=== PATIENT | female | born 1935 | race Caucasian/White ===

== ENCOUNTER 2018-04-15 18:58 | Inpatient (IN) | payer MEDICARE, OTHER, MEDICAID ==
[2018-04-15] MEDS ORDERED: Ondansetron PF 4 MG/2 ML Vial ONE (20:30)
[2018-04-15 21:26] LABS: Anion Gap 18 mmol/L (10-20); BUN (Urea Nitrogen) 112 mg/dL (9.8-20.1); Calc. Creatinine Clearance 0 mL/min (70-130); Calcium 10.8 mg/dL (7.8-10.44); Carbon Dioxide 20 mmol/L (23-31); Chloride 109 mmol/L (98-107); Estimated GFR-MDRD 12; Glucose 113 mg/dL (83-110); Potassium 6.1 mmol/L (3.5-5.1); Sodium 141 mmol/L (136-145)
[2018-04-15] MEDS: Sodium Bicarbonate 150 MEQ in Dextrose 5% in Water 1,000 ML IV SCH (23:00)
[2018-04-16 00:59] LABS: Lactic Acid 2.4 mmol/L (0.5-2.2)
--- NOTE | 2018-04-16 01:10 | CON ---
DATE OF CONSULTATION: CONSULTING PHYSICIAN: Linh Avila MD REQUESTING PHYSICIAN: ER physician. REASON FOR CONSULTATION: Acute kidney injury as well as hyperkalemia. IMPRESSION: 1. Acute kidney injury. This is likely prerenal. 2. Hyperkalemia, related to acute kidney injury, possibly compounded by the use of lisinopril and cellular shift of potassium due to metabolic acidosis. PLAN: 1. Start the patient on a bicarb-based infusion to correct the metabolic acidosis or by so doing achieve the potassium into the cells. 2. Renally dose all medications for low GFR. 3. Avoid potentially nephrotoxic agents. 4. Further management will be dependent on the clinical course. Hopefully, the patient's potassium will respond to the above-mentioned medical management. Otherwise, if the patient hyperkalemia persist without responded to medical therapy or worsens, the patient may need renal replacement therapy to address this hyperkalemia. HISTORY OF PRESENT ILLNESS: The patient is an 83-year-old female patient who was transferred from [place], where the patient presented and was noted to have elevated potassium at above 7, as well as evidence of renal failure. The patient has received about 2 L of IV fluid at [place] and 1 L here in the ER. Repeat chemistry showed potassium down to 6.1. PAST MEDICAL HISTORY: Significant for hypertension, dyslipidemia, and diabetes mellitus. MEDICATIONS: Reviewed and as documented on [employer]. ALLERGIES: NO KNOWN DRUG ALLERGIES. FAMILY HISTORY: Not significantly related to presenting illness. SOCIAL HISTORY: No alcohol, no tobacco, or illicit drug use. PHYSICAL EXAMINATION: VITAL SIGNS: The patient noted with the following vital signs; blood pressure of 163/78, respiratory rate of 18, and O2 saturation 99% SUMMARY: An 83-year-old female patient who presented here with history of not feeling well. Job ID: [id number]
[2018-04-16] MEDS ORDERED: Dextrose 50% Abboject 50 ML SYRINGE SLOW IVP PRN (04:29)
[2018-04-16] MEDS ORDERED: Dextrose 5% in Water 1,000 ML IV PRN (04:29)
[2018-04-16] MEDS: cefTRIAXone\\ROCEPHIN 1 GM in Sodium Chloride 0.9% 100 ML IVPB SCH (05:16)
--- NOTE | 2018-04-16 05:46 | HP ---
CHIEF COMPLAINT: Altered mental status. HISTORY OF PRESENT ILLNESS: Patient is an 83-year-old female with a history of relatively recent CVA with some left-sided hemiplegia and dysphagia. The patient lives in a nursing facility and was noted to be significantly weaker over the last couple of days. She had labs obtained which indicated the patient was in acute renal failure. She was subsequently sent to the hospital. She initially presented to the facility in [place]. There, her creatinine was 4, BUN 122, and potassium 7.1. She also had the UA with 4+ bacteria and positive leukocyte esterase. There, the patient received vancomycin, Zosyn, insulin, and D50 as well as calcium gluconate. Urine cultures were obtained. The patient was transferred to this facility. The patient's daughter is present. She states the patient had fallen the day before her stroke with injury to her right shoulder with some type of fracture that was not specifically related to the humerus. Apparently, she has had some followup and was told that the bone was healing well. The patient has been saying the word ouch over the last couple of days. The patient's daughter reports that her mother has some dysarthria, but otherwise has normal cognitive function and does not have any degree of dementia. REVIEW OF SYSTEMS: Patient is having a hard time with the dysarthria and appears to be somewhat encephalopathic, cannot get much history from her regarding the review of systems. PAST MEDICAL HISTORY: Notable for: 1. Diabetes mellitus type 2. 2. Hypertension. 3. Congestive heart failure. 4. COPD. 5. Symptomatic bradycardia with pacemaker placement. 6. History of chronic atrial fibrillation, on Eliquis. 7. Recent CVA with left hemiplegia, dysphagia, and dysarthria. She is on nectar thickened liquids. SURGICAL HISTORY: 40 years ago. SOCIAL HISTORY: Patient has a history of smoking pack a day remotely. She is a non-alcohol, nondrug user. She lives in a nursing facility. She is full code and her daughter is her surrogate decision maker. FAMILY HISTORY: Reviewed with the patient's daughter, nothing contributory relative to this admission. No history of premature coronary artery disease or cancer. ALLERGIES: NONE. CURRENT MEDICATIONS: 1. Diltiazem 60 mg daily. 2. Eliquis 2.5 daily. 3. Ferrous sulfate 325 daily. 4. Lasix 20 daily. 5. Lantus 20 units subcu daily. 6. Metformin 1000 mg b.i.d. 7. MiraLAX 17 g daily p.r.n. 8. Nexium 20 mg daily. PHYSICAL EXAMINATION: VITAL SIGNS: BP 131/57, pulse 98, respirations 18, and O2 saturation 97% on room air. GENERAL APPEARANCE: Age-appropriate female. She appears a bit encephalopathic. She does speak and generally gives correct answers with one word, but she is a bit dysarthric and lethargic. HEENT: Pupils are slightly constricted. They do react. She has no OP lesions. Slightly dry oral mucosa. NECK: Supple and symmetric. HEART: Irregular with no murmur. LUNGS: Clear to auscultation bilaterally with good chest wall expansion, air exchange. ABDOMEN: Soft, nontender, and nondistended. Positive bowel sounds. No masses. No organomegaly. EXTREMITIES: No cyanosis, clubbing, or edema. Right shoulder is hypertrophic and mildly tender to palpation. She is in a sling. NEUROLOGICAL: The patient has dysarthria. She has left-sided paralysis. Normal strength on the right. No edema. LABS: Repeat labs here, sodium 141, potassium 6.1, chloride 109, CO2 of 20, BUN 112, creatinine 3.52, glucose 113. Lactic acid 2.4, repeat 2.4. Calcium is 10.8. IMPRESSION AND PLAN: 1. Acute renal failure. Suspect this is due to the patient's recent stroke and significantly diminished oral intake along with taking diuretics. She has become profoundly dehydrated causing prerenal azotemia. She is getting rehydration. Dr. Avila has already seen the patient in consultation and recommended fluids with bicarb which she is receiving now. Her potassium is improving with the initial efforts and should continue to improve with fluids as well. 2. Hyperkalemia, improved. Continue with hydration. Continue to monitor. 3. Diabetes mellitus. We will hold the metformin given her renal insufficiency and lactic acidosis. We will give Accu-Cheks and sliding scale as needed. 4. Encephalopathy secondary to dehydration, urinary tract infection. 5. Urinary tract infection. The patient received vancomycin and Zosyn at the [place] [facility]. We will continue with antibiotics and follow up on the cultures here. 6. History of atrial fibrillation. Continue with diltiazem for rate control, and Eliquis. 7. History of chronic obstructive pulmonary disease. We will give p.r.n. nebulizers. 8. Dysphagia. We will consult Speech Therapy in the meantime, continue the patient on nectar thickened liquids. Job ID: [id number]
[2018-04-16 06:39] LABS: Anion Gap 17 mmol/L (10-20); BUN (Urea Nitrogen) 99 mg/dL (9.8-20.1); Calc. Creatinine Clearance 0 mL/min (70-130); Carbon Dioxide 21 mmol/L (23-31); Chloride 113 mmol/L (98-107); Estimated GFR-MDRD 15; Glucose 150 mg/dL (83-110); Potassium 6.4 mmol/L (3.5-5.1); Sodium 145 mmol/L (136-145)
[2018-04-16] MEDS ORDERED: Heparin 5,000 UNITS/ML VIAL SC SCH (09:00)
[2018-04-16] MEDS ORDERED: Sodium Bicarbonate 150 MEQ in Dextrose 5% in Water 1,000 ML IV SCH (09:15)
[2018-04-16] MEDS: Apixaban 2.5 MG TAB PO SCH ×2 (09:52→21:47)
[2018-04-16] MEDS: HumaLOG 300 UNITS/3 ML VIAL SC PRN (15:05)
[2018-04-16] MEDS ORDERED: HumaLOG 300 UNITS/3 ML VIAL ONE (15:06)
[2018-04-16] MEDS: Sodium Bicarbonate 150 MEQ in Dextrose 5% in Water 1,000 ML IV SCH ×2 (21:42)
--- NOTE | 2018-04-16 21:57 | PRG ---
DATE OF SERVICE: 04/16/2018 SUBJECTIVE: The patient is seen and examined. She is looking much better today. Noted with the following vital signs. OBJECTIVE: VITAL SIGNS: Afebrile. Temperature 98, pulse 91, respiratory rate of 20 and O2 saturation of 99% with blood pressure 130/60. HEENT: Remarkable for dry mucosa, but better than yesterday. CARDIOVASCULAR SYSTEM: First and second heart sounds were heard. RESPIRATORY SYSTEM: Clear to auscultation. DIGESTIVE SYSTEM: Revealed a benign abdomen. EXTREMITIES: No peripheral edema. SKIN: No new gross rash. LYMPHATICS: No peripheral lymphadenopathy. LABORATORY INVESTIGATIONS: Significant for potassium of 6.4, bicarbonate of 21, creatinine of 3.06 with BUN of 99. IMPRESSION: 1. Acute on chronic kidney disease, which is still advanced. 2. Hyperkalemia persistent. 3. Metabolic acidosis. PLAN: 1. We will continue with bicarb supplementation. 2. We will continue to monitor the potassium level. Hopefully, this will improve and respond to medical therapy as the patient is not a great candidate for hemodialysis, however. 3. Further management will be dependent on the clinical course. Job ID: [id number]
[2018-04-16 23:08] LABS: Hemoglobin 8.9 g/dL (12.0-16.0); Platelet Count 204 thou/uL (130-400)
[2018-04-17] MEDS: cefTRIAXone\\ROCEPHIN 1 GM in Sodium Chloride 0.9% 100 ML IVPB SCH (05:30)
[2018-04-17] MEDS: Apixaban 2.5 MG TAB PO SCH ×2 (12:10→21:50)
[2018-04-17 12:12] LABS: #Eosinphils 0.2 thou/uL (0.0-0.7); #Lymphocytes 1.1 thou/uL (1.20-3.40); #Monocytes 0.6 thou/uL (0.11-0.59); #Neutrophils 6.1 thou/uL (1.40-6.50); %Basophils 0.1 % (0.0-1.0); %Eosinophils 2.4 % (0.0-10.0); %Lymphocytes 13.5 % (21.0-51.0); %Monocytes 7.9 % (0.0-10.0); %Neutrophils 76.1 % (42.0-75.0); Hemoglobin 9.8 g/dL (12.0-16.0); Mean Corpuscular HGB CONC 33.5 g/dL (32.0-36.0); Mean Corpuscular Hemoglobin 31.7 pg (27.0-31.0); Mean Corpuscular Volume 94.7 fL (78.0-98.0); Mean Platelet Volume 7.7 fL (7.4-10.4); Platelet Count 261 thou/uL (130-400); RBC Distribution Width 12.6 % (11.5-14.5); Red Blood Cell (RBC) Count 3.09 mill/uL (4.20-5.40)
--- NOTE | 2018-04-17 12:14 | PDOC.PN ---
- Subjective Encounter Start Date: 04/17/18 Encounter Start Time: 12:21 Ms. Toro was seen today in follow-up of generalized weakness, and acute kidney injury. she is very weak. She says she " hurts all over". - Objective Resuscitation Status - Order Detail: 04/16/18 04:19 Resuscitation Status Routine Resuscitation Status: FULL: Full Resuscitation MAR Reviewed: Yes Vital Signs & Weight: Vital Signs (12 hours) Temp Pulse Resp BP Pulse Ox 04/17/18 12:10 92 04/17/18 07:50 98.6 F 92 20 130/61 97 04/17/18 04:30 97.7 F 92 18 126/58 L 93 L Result Diagrams: 04/17/18 11:53 04/16/18 22:58 Additional Labs: Accuchecks 04/17/18 04/17/18 04/16/18 11:00 06:44 15:00 POC Glucose 217 H 152 H 340 H Phys Exam - Physical Examination HEENT: PERRLA Respiratory: no wheezing, no rales, no rhonchi, clear to auscultation bilateral Cardiovascular: RRR, no significant murmur, no rub Gastrointestinal: soft, non-tender, positive bowel sounds Musculoskeletal: no edema, pulses present Dx/Plan (1) UTI (urinary tract infection) Status: Acute (2) Acute kidney injury Code(s): N17.9 - ACUTE KIDNEY FAILURE, UNSPECIFIED Status: Acute (3) Chronic atrial fibrillation Code(s): I48.2 - CHRONIC ATRIAL FIBRILLATION Status: Chronic Comment: Digoxin 0.125mg daily (4) Diabetes mellitus Code(s): E11.9 - TYPE 2 DIABETES MELLITUS WITHOUT COMPLICATIONS Status: Chronic (5) Decubitus ulcer of sacral region, stage 2 Code(s): L89.152 - PRESSURE ULCER OF SACRAL REGION, STAGE 2 Status: Acute - Plan * UTI- urine culture was taken in [place]- still awaiting results of the cultures- continue Rocephin * Acute kidney injury- her renal function is improving * Atrial Fibrillation- her heart rate is stable, and she is on Eliquis for CVA prevention * DM- blood glucose is stable- continue SSI, and hold Metformin due to NURA * HTN- blood pressure is controlled * Sacral Decubitus- present on admission- continue local wound care.
[2018-04-17 12:29] LABS: Anion Gap 15 mmol/L (10-20); BUN (Urea Nitrogen) 52 mg/dL (9.8-20.1); Calc. Creatinine Clearance 0 mL/min (70-130); Calcium 10.5 mg/dL (7.8-10.44); Carbon Dioxide 28 mmol/L (23-31); Chloride 107 mmol/L (98-107); Estimated GFR-MDRD 25; Glucose 216 mg/dL (83-110); Potassium 5.3 mmol/L (3.5-5.1); Sodium 145 mmol/L (136-145)
--- NOTE | 2018-04-17 13:51 | PQF ---
DATE: 04-17-18 ATTN: DR. MADELYN PIÑA / DR. MILO GARCIA Please exercise your independent, professional judgment in responding to the clarification form. Clinical indicators are provided on the bottom of this form for your review Please check appropriate box(s): [ x ] Encephalopathy: Type: [ x ] Acute [ ] Subacute [ ] Chronic Etiology: [ x ] Metabolic [ ] Toxic [ ] Other (please specify) [ ] Transient Alteration of Awareness [ ] Other diagnosis [ ] Unable to determine In addition, please specify: Present on Admission (POA): [ x ] Yes [ ] No [ ] Unable to determine For continuity of documentation, please document condition throughout progress notes and discharge summary. Thank You. CLINICAL INDICATORS - SIGNS / SYMPTOMS / LABS ER DX: ACUTE RENAL FAILURE, HYPERKALEMIA, LACTIC ACIDOSIS, UTI H&P: APPEARS TO BE SOMEWHAT ENCEPHALOPATHIC, CANNOT GET MUCH HISTORY. SHE APPEARS A BIT ENCEPHALOPATHIC, LETHARGIC H&P: ENCEPHALOPATHY SECONDARY TO DEHYDRATION, UTI CONSULT NOTE DR. SORTO 04-16-18: METABOLIC ACIDOSIS RISK FACTORS: H&P: HX OF DM 2, HTN, CHF, COPD, DEHYDRATED FROM NH, HYPERKALEMIA TREATMENTS: ER; IVF MAR: SODIUM BICARB IVF, ROCEPHIN (This form is maintained as a part of the permanent medical record) 2014 [employer], [employer]. All Rights Reserved [email or web address] [email or web address] Office: [phone] [facility]
--- NOTE | 2018-04-17 16:31 | RAD ---
MODIFIED BARIUM SWALLOW: Date: 04-17-18 History: Dysphagia, unspecified. Feeding difficulties. FINDINGS: A modified barium swallow was performed in conjunction with a member of the division of Speech Pathol ogy. The patient is imaged in the lateral projection swallowing various consistencies of barium. There is penetration and aspiration with nectar thick liquids and thin liquids no penetration of aspi ration noted with pudding or honey thickened liquids. IMPRESSION: Penetration and aspiration with thin liquids and nectar liquid. POS: ABDOULAYE
--- NOTE | 2018-04-17 20:04 | PRG ---
DATE OF SERVICE: 04/17/2018 SUBJECTIVE: The patient is seen and examined. Noted with the following vital signs. OBJECTIVE: VITAL SIGNS: Afebrile, temperature 98.3, pulse 89, respiratory rate of 20, O2 saturation 97%, and blood pressure 137/57. HEENT: Unremarkable. CARDIOVASCULAR SYSTEM: First and second heart sounds were heard. RESPIRATORY SYSTEM: Clear to auscultation. DIGESTIVE SYSTEM: Revealed a benign abdomen. EXTREMITIES: No peripheral edema. SKIN: No new gross rash. LYMPHATICS: No peripheral lymphadenopathy. LABORATORY INVESTIGATION: Showed a creatinine down to 1.9, BUN of 52, bicarb of 28, potassium 5.3, and calcium 10.5. IMPRESSION: 1. Acute on chronic kidney disease, which is much improved. 2. Metabolic acidosis, resolved. 3. Hyperkalemia, improving. PLAN: 1. Change the bicarb infusion to dextrose saline. 2. Continue renal supportive measures. 3. Further management to be dependent on the clinical course. Job ID: [id number]
[2018-04-17] MEDS: Dextrose 5 %-0.45 % NaCl 1,000 ML IV SCH ×2 (21:53→21:54)
[2018-04-17] MEDS: HumaLOG 300 UNITS/3 ML VIAL SC PRN (22:28)
[2018-04-18] MEDS: Sodium Bicarbonate 150 MEQ in Dextrose 5% in Water 1,000 ML IV SCH (04:58)
[2018-04-18] MEDS: cefTRIAXone\\ROCEPHIN 1 GM in Sodium Chloride 0.9% 100 ML IVPB SCH (05:20)
[2018-04-18 06:34] LABS: Anion Gap 14 mmol/L (10-20); BUN (Urea Nitrogen) 38 mg/dL (9.8-20.1); Calc. Creatinine Clearance 26 mL/min (70-130); Carbon Dioxide 27 mmol/L (23-31); Chloride 108 mmol/L (98-107); Estimated GFR-MDRD 31; Glucose 212 mg/dL (83-110); Potassium 4.8 mmol/L (3.5-5.1); Sodium 144 mmol/L (136-145)
[2018-04-18] MEDS: Dextrose 5 %-0.45 % NaCl 1,000 ML IV SCH (07:24)
[2018-04-18] MEDS: Apixaban 2.5 MG TAB PO SCH ×2 (09:23→21:19)
--- NOTE | 2018-04-18 09:55 | PDOC.PN ---
- Subjective Encounter Start Date: 04/18/18 Encounter Start Time: 09:50 -: old records requested/rev Pt seen and examined, chart reviewed in its entirety, this is my first visit with this patient foillow up for acute metabolic enephalopahy, MDR Proteus UTI, present on admit No F/C, no N/V/D/C. on nectar thick liquids for O-P dysphagia, bu tMS improving , Cr trending down No F/C, no N/V/D/C, no cough or sputum production All systems reviewed and neg x as above - Objective Resuscitation Status - Order Detail: 04/16/18 04:19 Resuscitation Status Routine Resuscitation Status: FULL: Full Resuscitation MAR Reviewed: Yes Vital Signs & Weight: Vital Signs (12 hours) Temp Pulse Resp BP Pulse Ox 04/18/18 08:58 97.9 F 77 18 133/68 94 L 04/18/18 03:36 97.9 F 81 22 H 120/65 100 Weight Weight 130 lb I&O: 04/17/18 04/18/18 04/19/18 06:59 06:59 06:59 Intake Total 1100 Output Total 400 Balance 700 Result Diagrams: 04/17/18 11:53 04/18/18 04:33 Additional Labs: Accuchecks 04/18/18 04/17/18 04/17/18 05:37 20:31 16:40 POC Glucose 215 H 242 H 189 H 04/17/18 11:00 POC Glucose 217 H Radiology Reviewed by me: Yes EKG Reviewed by me: Yes Phys Exam - Physical Examination Constitutional: NAD chronically-ill appearing HEENT: PERRLA, moist MMs, sclera anicteric, oral pharynx no lesions Neck: no nodes, no JVD, supple, full ROM Respiratory: no wheezing, no rales, no rhonchi, clear to auscultation bilateral Cardiovascular: RRR, no significant murmur, no rub Gastrointestinal: soft, non-tender, no distention, positive bowel sounds Musculoskeletal: no edema, pulses present Neurological: non-focal, normal sensation, moves all 4 limbs Lymphatic: no nodes Psychiatric: A&O x 3 Skin: no rash, normal turgor, cap refill <2 seconds Dx/Plan (1) Dehydration Code(s): E86.0 - DEHYDRATION Status: Acute Comment: start IV fluids, elevated BUN:Cr (2) Acute kidney injury Code(s): N17.9 - ACUTE KIDNEY FAILURE, UNSPECIFIED Status: Acute Comment: resolvign, Cr 1.58 today, [facility] (3) Decubitus ulcer of sacral region, stage 2 Code(s): L89.152 - PRESSURE ULCER OF SACRAL REGION, STAGE 2 Status: Chronic Comment: present on admit (4) UTI (urinary tract infection) Status: Acute Qualifiers: Urinary tract infection type: acute cystitis Hematuria presence: without hematuria Qualified Code(s): N30.00 - Acute cystitis without hematuria Comment: MDR Proteus, changed to zosyn today, need sat least 3 days Rx before discharge (5) Chronic atrial fibrillation Code(s): I48.2 - CHRONIC ATRIAL FIBRILLATION Status: Chronic Comment: Digoxin 0.125mg daily (6) Diabetes mellitus Code(s): E11.9 - TYPE 2 DIABETES MELLITUS WITHOUT COMPLICATIONS Status: Chronic Qualifiers: Diabetes mellitus type: type 2 Diabetes mellitus half-way insulin use: without rat exterminator use Diabetes mellitus complication status: without complication Qualified Code(s): E11.9 - Type 2 diabetes mellitus without complications (7) Hyponatremia Code(s): E87.1 - HYPO-OSMOLALITY AND HYPONATREMIA Status: Chronic Comment: Stable trend (8) Tobacco abuse Code(s): Z72.0 - TOBACCO USE Status: Chronic Comment: Smoking cessation - Plan cont current plan of care, continue antibiotics, PT/OT, speech therapy * .
[2018-04-18] MEDS: Piperacillin/Tazobactam 3.375 GM in Sodium Chloride 0.9% 100 ML IVPB SCH ×2 (10:54→19:31)
[2018-04-18] MEDS: HumaLOG 300 UNITS/3 ML VIAL SC PRN (17:30)
--- NOTE | 2018-04-18 19:20 | PRG ---
DATE OF SERVICE: 04/18/2018 SUBJECTIVE: The patient is seen and examined. No new complaint. Noted with the following vital signs. OBJECTIVE: VITAL SIGNS: Afebrile, temperature 97.9, pulse 77, respiratory rate of 18, blood pressure 133/68, and O2 saturations are 94%. HEENT: Unremarkable. Moist oral mucosa. NECK: Supple. No conjunctival injection or icterus. CARDIOVASCULAR SYSTEM: First and second heart sounds were heard. RESPIRATORY SYSTEM: Clear to auscultation. DIGESTIVE SYSTEM: Revealed a benign abdomen with positive bowel sounds. EXTREMITIES: No peripheral edema. SKIN: No new gross rash. LYMPHATICS: No peripheral lymphadenopathy. LABORATORY INVESTIGATION: Showed a creatinine down to 1.58 with BUN of 38. IMPRESSION: 1. Acute on chronic kidney disease, which seems to be improving. 2. Metabolic acidosis, resolved. 3. Hyperkalemia, improved/resolved. PLAN: 1. We will continue with current renal supportive measures. 2. Further management to be dependent on the clinical course. Job ID: [id number]
[2018-04-18] MEDS: Sodium Chloride 0.9% 1,000 ML IV SCH (21:19)
[2018-04-18] MEDS: Acetaminophen 325 MG TAB PO PRN (21:23)
[2018-04-18 22:38] LABS: Platelet Count 236 thou/uL (130-400)
[2018-04-19] MEDS: Piperacillin/Tazobactam 3.375 GM in Sodium Chloride 0.9% 100 ML IVPB SCH ×3 (02:25→18:02)
[2018-04-19] MEDS: Apixaban 2.5 MG TAB PO SCH ×2 (08:59→21:11)
[2018-04-19] MEDS: Sodium Chloride 0.9% 1,000 ML IV SCH ×2 (09:05→21:24)
--- NOTE | 2018-04-19 14:57 | PDOC.PN ---
- Subjective Encounter Start Date: 04/19/18 Encounter Start Time: 14:55 Patient seen and examined - Objective Resuscitation Status - Order Detail: 04/16/18 04:19 Resuscitation Status Routine Resuscitation Status: FULL: Full Resuscitation Vital Signs & Weight: Vital Signs (12 hours) Temp Pulse Resp BP Pulse Ox 04/19/18 11:29 99.7 F H 92 16 134/62 93 L 04/19/18 08:30 96 04/19/18 07:50 98.8 F 93 16 134/63 96 04/19/18 03:34 97.3 F L 91 19 136/84 98 Weight Admit Weight 130 lb Weight 130 lb I&O: 04/18/18 04/19/18 04/20/18 06:59 06:59 06:59 Intake Total 1100 1582 Output Total 400 500 Balance 700 1082 Result Diagrams: 04/18/18 22:30 04/18/18 22:30 Additional Labs: Accuchecks 04/19/18 04/18/18 04/18/18 05:32 20:41 16:37 POC Glucose 131 H 117 H 247 H Phys Exam - Physical Examination Constitutional: NAD HEENT: PERRLA, moist MMs, sclera anicteric Neck: no nodes, no JVD, supple coarse breath sounds no respiratory distress Cardiovascular: no rub, irregular 2/6 BOLA Gastrointestinal: soft, non-tender, no distention Musculoskeletal: pulses present, edema present (LUE 1+) Dx/Plan (1) Acute kidney injury Code(s): N17.9 - ACUTE KIDNEY FAILURE, UNSPECIFIED Status: Acute Comment: resolvign, Cr 1.58 today, [facility] (2) UTI (urinary tract infection) Status: Acute Qualifiers: Urinary tract infection type: acute cystitis Hematuria presence: without hematuria Qualified Code(s): N30.00 - Acute cystitis without hematuria Comment: MDR Proteus, changed to zosyn today, need sat least 3 days Rx before discharge (3) Chronic atrial fibrillation Code(s): I48.2 - CHRONIC ATRIAL FIBRILLATION Status: Chronic Comment: Digoxin 0.125mg daily (4) Diabetes mellitus Code(s): E11.9 - TYPE 2 DIABETES MELLITUS WITHOUT COMPLICATIONS Status: Chronic Qualifiers: Diabetes mellitus type: type 2 Diabetes mellitus watermelon harvesting supervisor insulin use: without watermelon harvesting supervisor use Diabetes mellitus complication status: without complication Qualified Code(s): E11.9 - Type 2 diabetes mellitus without complications - Plan * cont zosyn, day 2 today will give one more dose in AM and likely DC after * repeat urine cultures if negative at 48hrs will DC * no family at bedside * call placed to a Rachel Toro at [phone] with no reply * no changes in plan of care
[2018-04-19] MEDS: HumaLOG 300 UNITS/3 ML VIAL SC PRN (17:33)
--- NOTE | 2018-04-19 19:24 | PRG ---
DATE OF SERVICE: 04/19/2018 SUBJECTIVE: The patient noted with the following vital signs. OBJECTIVE: VITAL SIGNS: Afebrile, temperature 99.7, pulse 96, respiratory rate of 16, O2 saturation 94% with blood pressure of 135/61. HEENT: Unremarkable. CARDIOVASCULAR SYSTEM: First and second heart sounds were heard. RESPIRATORY SYSTEM: Clear to auscultation. DIGESTIVE SYSTEM: Revealed a benign abdomen. EXTREMITIES: No peripheral edema. SKIN: No new gross rash. LYMPHATICS: No peripheral lymphadenopathy. IMPRESSION: Acute on chronic kidney disease, which is much improved. PLAN: Continue current renal supportive measures. Job ID: [id number]
[2018-04-19] MEDS: Acetaminophen 325 MG TAB PO PRN (21:10)
[2018-04-20] MEDS: Piperacillin/Tazobactam 3.375 GM in Sodium Chloride 0.9% 100 ML IVPB SCH ×3 (01:43→20:00)
[2018-04-20] MEDS: Apixaban 2.5 MG TAB PO SCH ×2 (10:04→20:01)
[2018-04-20] MEDS: Acetaminophen 325 MG TAB PO PRN (10:51)
[2018-04-20] MEDS: HumaLOG 300 UNITS/3 ML VIAL SC PRN (13:40)
--- NOTE | 2018-04-20 13:46 | PDOC.EVN ---
Event Note - Event Note Event Note: DC SUMMARY #[id number]
--- NOTE | 2018-04-20 15:23 | PDOC.PN ---
- Subjective Encounter Start Date: 04/20/18 Encounter Start Time: 15:22 Patient seen and examined, family at bedside. - Objective Resuscitation Status - Order Detail: 04/16/18 04:19 Resuscitation Status Routine Resuscitation Status: FULL: Full Resuscitation Vital Signs & Weight: Vital Signs (12 hours) Temp Pulse Resp BP BP Pulse Ox 04/20/18 12:00 99.6 F 98 20 126/58 L 96 04/20/18 10:03 65 153/67 H 04/20/18 08:00 98.3 F 90 22 H 127/60 99 04/20/18 03:30 97.9 F 89 18 142/68 H 97 Weight Admit Weight 130 lb Weight 130 lb I&O: 04/19/18 04/20/18 04/21/18 06:59 06:59 06:59 Intake Total 1582 921 Output Total 500 350 Balance 1082 571 Result Diagrams: 04/18/18 22:30 04/18/18 22:30 Additional Labs: Accuchecks 04/20/18 04/19/18 04/19/18 11:25 20:43 16:11 POC Glucose 185 H 116 H 274 H Phys Exam - Physical Examination Constitutional: NAD HEENT: PERRLA, moist MMs, sclera anicteric Neck: no nodes, no JVD, supple, full ROM Respiratory: no wheezing, no rales, no rhonchi Cardiovascular: RRR, no significant murmur, no rub Gastrointestinal: soft, non-tender, no distention, positive bowel sounds Musculoskeletal: pulses present, edema present (trace) Dx/Plan (1) Acute kidney injury Code(s): N17.9 - ACUTE KIDNEY FAILURE, UNSPECIFIED Status: Acute Comment: resolvign, Cr 1.58 today, [facility] (2) UTI (urinary tract infection) Status: Acute Qualifiers: Urinary tract infection type: acute cystitis Hematuria presence: without hematuria Qualified Code(s): N30.00 - Acute cystitis without hematuria Comment: MDR Proteus, changed to zosyn today, need sat least 3 days Rx before discharge (3) Chronic atrial fibrillation Code(s): I48.2 - CHRONIC ATRIAL FIBRILLATION Status: Chronic Comment: Digoxin 0.125mg daily (4) Diabetes mellitus Code(s): E11.9 - TYPE 2 DIABETES MELLITUS WITHOUT COMPLICATIONS Status: Chronic Qualifiers: Diabetes mellitus type: type 2 Diabetes mellitus manager intermediate insulin use: without manager intermediate use Diabetes mellitus complication status: without complication Qualified Code(s): E11.9 - Type 2 diabetes mellitus without complications - Plan * not eating a whole lot, continues to only finish about 10% of her plate * family at bedside, will continue with IV zosyn for now * will see how much patient eats over the next 24 hours, if not eating a lot will discuss with family regarding PEG tube placement * hold discharge for now
[2018-04-20] MEDS: Sodium Chloride 0.9% 1,000 ML IV SCH (16:22)
--- NOTE | 2018-04-20 16:26 | DIS ---
DATE OF ADMISSION: 04/15/2018 DATE OF DISCHARGE: 04/20/2018 ADMITTING DIAGNOSES: Altered mental status, diabetes mellitus type 2, hypertension, heart failure, chronic obstructive pulmonary disease, and bradycardia. DISCHARGE DIAGNOSES: Altered mental status secondary to urinary tract infection, improving. Diabetes mellitus type 2, hypertension, chronic obstructive pulmonary disease, and congestive heart failure. HOSPITAL COURSE: This is an 83-year-old female, who was admitted to the hospital with change in mental status. Of note, was admitted recently to the hospital due to a CVA, was admitted to Internal Medicine Team, followed closely throughout her course of stay by Nephrology as well, had urine cultures done, which showed Proteus mirabilis, susceptible to Zosyn only. The patient was given 3 days of IV Zosyn with repeat culture showing no growth at 48 hours. The patient's white blood cell counts were normal. Vital signs were normal, was afebrile and back to baseline per family. The patient at that point in time, was supposed to be discharged back to facility from when she came to follow up with PCP within 1 week and have a repeat urinalysis/culture as needed in 2 to 3 weeks if UA was dirty. Case and plan discussed with the patient's son at length. He understood and agreed with this plan. DISPOSITION: Back to her facility. FOLLOWUP: Followup with PCP in 1 week. MEDICATIONS: See MAR. ACTIVITY: As tolerated with assistance as needed. DIET: Low-fat, low-calorie, and high-fiber diet. CONDITION: Stable. PROGNOSIS: Guarded. Case and plan discussed with patient's family at length. They understand and agree with this plan. Job ID: [id number]
[2018-04-20 23:09] LABS: Hemoglobin 9.1 g/dL (12.0-16.0); Platelet Count 234 thou/uL (130-400)
--- NOTE | 2018-04-21 01:56 | PRG ---
DATE OF SERVICE: 04/21/2018 OBJECTIVE: VITAL SIGNS: The patient is noted with the following vital signs; temperature 98.6, pulse 94, respiratory rate of 16, O2 saturation 97% with blood pressure 134/65. HEENT: Unremarkable. CARDIOVASCULAR SYSTEM: First and second heart sounds were heard. RESPIRATORY: Clear to auscultation. DIGESTIVE SYSTEM: Revealed a benign abdomen. Positive bowel sounds. EXTREMITIES: No peripheral edema. SKIN: No new gross rash. LABORATORY INVESTIGATION: Showed creatinine down to 1. IMPRESSION: Acute kidney injury, resolved. PLAN: 1. Continue renal supportive measures. 2. Further management will be dependent on the clinical course. Job ID: [id number]
[2018-04-21] MEDS: Piperacillin/Tazobactam 3.375 GM in Sodium Chloride 0.9% 100 ML IVPB SCH ×3 (02:19→18:24)
[2018-04-21] MEDS: Acetaminophen 325 MG TAB PO PRN ×3 (02:26→21:48)
[2018-04-21] MEDS: Apixaban 2.5 MG TAB PO SCH ×2 (09:22→21:46)
[2018-04-21] MEDS: Sodium Chloride 0.9% 1,000 ML IV SCH (10:50)
--- NOTE | 2018-04-21 12:28 | PDOC.PN ---
- Subjective Encounter Start Date: 04/21/18 Encounter Start Time: 12:26 Patient seen and examined, no family at bedside - Objective Resuscitation Status - Order Detail: 04/16/18 04:19 Resuscitation Status Routine Resuscitation Status: FULL: Full Resuscitation Vital Signs & Weight: Vital Signs (12 hours) Temp Pulse Resp BP Pulse Ox 04/21/18 08:10 97.7 F 79 20 127/53 L 99 04/21/18 04:00 98.4 F 86 18 143/60 H 98 Weight Admit Weight 130 lb Weight 130 lb I&O: 04/20/18 04/21/18 04/22/18 06:59 06:59 06:59 Intake Total 921 1773 Output Total 350 1050 Balance 571 723 Result Diagrams: 04/20/18 22:50 04/20/18 22:50 Additional Labs: Accuchecks 04/21/18 04/21/18 04/20/18 11:26 05:58 21:02 POC Glucose 153 H 118 H 123 H 04/20/18 04/20/18 16:53 05:52 POC Glucose 125 H 138 H Phys Exam - Physical Examination Constitutional: NAD HEENT: PERRLA, moist MMs, sclera anicteric Neck: no nodes, no JVD, supple Respiratory: no wheezing, no rales, no rhonchi Cardiovascular: RRR, no significant murmur, no rub Gastrointestinal: soft, non-tender, no distention, positive bowel sounds Musculoskeletal: pulses present, edema present (trace) Dx/Plan (1) Acute kidney injury Code(s): N17.9 - ACUTE KIDNEY FAILURE, UNSPECIFIED Status: Acute Comment: resolvign, Cr 1.58 today, CCM (2) UTI (urinary tract infection) Status: Acute Qualifiers: Urinary tract infection type: acute cystitis Hematuria presence: without hematuria Qualified Code(s): N30.00 - Acute cystitis without hematuria Comment: MDR Proteus, changed to zosyn today, need sat least 3 days Rx before discharge (3) Chronic atrial fibrillation Code(s): I48.2 - CHRONIC ATRIAL FIBRILLATION Status: Chronic Comment: Digoxin 0.125mg daily (4) Diabetes mellitus Code(s): E11.9 - TYPE 2 DIABETES MELLITUS WITHOUT COMPLICATIONS Status: Chronic Qualifiers: Diabetes mellitus type: type 2 Diabetes mellitus half-way insulin use: without half-way use Diabetes mellitus complication status: without complication Qualified Code(s): E11.9 - Type 2 diabetes mellitus without complications - Plan * continues to not eat, no family at bedside, call placed to number available twice with no response * will discuss hospice options with family, if they do not want to pursue this then will need to pursue PEG tube placement as patient is unable to maintain her caloric intake * no other changes in plan of care * will reattempt to reach family and see if they're interested in PEG or hospice
[2018-04-21] MEDS ORDERED: Saccharomyces boulardii 250 MG CAP PO SCH (16:00)
--- NOTE | 2018-04-21 22:45 | PRG ---
DATE OF SERVICE: 04/21/2018 SUBJECTIVE: The patient noted with the following vital signs. OBJECTIVE: VITAL SIGNS: Afebrile. Temperature 98.1, pulse 93, respiratory rate of 16, O2 saturations 97%, and blood pressure 138/62. HEENT: Unremarkable. CARDIOVASCULAR SYSTEM: First and second heart sounds were heard. RESPIRATORY SYSTEM: Clear to auscultation. DIGESTIVE SYSTEM: Revealed a benign abdomen. EXTREMITIES: No peripheral edema. SKIN: No new gross rash. LYMPHATICS: No peripheral lymphadenopathy. IMPRESSION: Acute on chronic kidney disease, pretty much resolved. PLAN: 1. Continue renal supportive measures. 2. We will be following from a distance. Job ID: [id number]
[2018-04-22] MEDS: Sodium Chloride 0.9% 1,000 ML IV SCH ×3 (03:27→17:25)
[2018-04-22] MEDS: Piperacillin/Tazobactam 3.375 GM in Sodium Chloride 0.9% 100 ML IVPB SCH ×3 (03:27→17:23)
[2018-04-22] MEDS: Apixaban 2.5 MG TAB PO SCH ×2 (10:12→21:20)
[2018-04-22] MEDS: Saccharomyces boulardii 250 MG CAP PO SCH (10:12)
--- NOTE | 2018-04-22 10:46 | PDOC.PN ---
- Subjective Encounter Start Date: 04/22/18 Encounter Start Time: 10:45 Ms. Toro was seen today in follow-up of UTI with metabolic encephalopathy. She seems much more alert. Her daughter was at the bedside. Her daughter tells me that she is a picky eater, and that she brought in some roast yesterday which she ate most of it. Also her nurse notes that the patient tech says she ate about 75% of her eggs this morning. - Objective Resuscitation Status - Order Detail: 04/16/18 04:19 Resuscitation Status Routine Resuscitation Status: FULL: Full Resuscitation MAR Reviewed: Yes Vital Signs & Weight: Vital Signs (12 hours) Temp Pulse Resp BP Pulse Ox 04/22/18 10:13 81 04/22/18 08:05 97.5 F L 81 18 126/64 95 04/22/18 03:33 98.2 F 76 16 136/62 94 L Weight Admit Weight 130 lb Weight 131 lb I&O: 04/21/18 04/22/18 04/23/18 06:59 06:59 06:59 Intake Total 1773 2290 Output Total 1050 320 Balance 723 1970 Result Diagrams: 04/20/18 22:50 04/20/18 22:50 Additional Labs: Accuchecks 04/22/18 04/21/18 04/21/18 05:22 20:45 17:01 POC Glucose 118 H 196 H 121 H 04/21/18 11:26 POC Glucose 153 H Phys Exam - Physical Examination HEENT: PERRLA Respiratory: no wheezing, no rales, no rhonchi, clear to auscultation bilateral Cardiovascular: RRR, no significant murmur, no rub Gastrointestinal: soft, non-tender, no distention, positive bowel sounds Musculoskeletal: no edema, pulses present Dx/Plan (1) UTI (urinary tract infection) Status: Acute Qualifiers: Urinary tract infection type: acute cystitis Hematuria presence: without hematuria Qualified Code(s): N30.00 - Acute cystitis without hematuria Comment: MDR Proteus, changed to zosyn today, need sat least 3 days Rx before discharge (2) Acute kidney injury Code(s): N17.9 - ACUTE KIDNEY FAILURE, UNSPECIFIED Status: Acute Comment: resolvign, Cr 1.58 today, [facility] (3) Chronic atrial fibrillation Code(s): I48.2 - CHRONIC ATRIAL FIBRILLATION Status: Chronic Comment: Digoxin 0.125mg daily (4) Diabetes mellitus Code(s): E11.9 - TYPE 2 DIABETES MELLITUS WITHOUT COMPLICATIONS Status: Chronic Qualifiers: Diabetes mellitus type: type 2 Diabetes mellitus termite control servicer insulin use: without termite control servicer use Diabetes mellitus complication status: without complication Qualified Code(s): E11.9 - Type 2 diabetes mellitus without complications (5) Decubitus ulcer of sacral region, stage 2 Code(s): L89.152 - PRESSURE ULCER OF SACRAL REGION, STAGE 2 Status: Chronic Comment: present on admit (6) Dysphagia Code(s): R13.10 - DYSPHAGIA, UNSPECIFIED Status: Acute - Plan * UTI- urine culture is growing proteus which is sensitive a Zosyn, resistent to most oral antibiotics * Acute renal failure- improved * Metabolic encephalopathy- this has improved with the treatment of the UTI, and with hydration * recent CVA- stable- Left sided weakness Continue PT * Chronic AFIB- she is on Eliquis for CVA prevention * DM- blood glucose is stable. * Dysphagia and poor oral intake- discussed with the daughter. She is not interested in a PEG tube- will continue to monitor, and I have discussed the possibly outcome with her daughter, and she voiced understanding. She is likely to have aspiration, or recurrent episodes of dehydration and UTI . * 2 more days of IV Zosyn, and then [facility]
[2018-04-22 11:51] LABS: #Eosinphils 0.2 thou/uL (0.0-0.7); #Lymphocytes 1.3 thou/uL (1.20-3.40); #Monocytes 0.5 thou/uL (0.11-0.59); #Neutrophils 7.2 thou/uL (1.40-6.50); %Basophils 0.5 % (0.0-1.0); %Eosinophils 1.6 % (0.0-10.0); %Lymphocytes 14.5 % (21.0-51.0); %Neutrophils 78.3 % (42.0-75.0); Hemoglobin 8.8 g/dL (12.0-16.0); Mean Corpuscular HGB CONC 32.2 g/dL (32.0-36.0); Mean Corpuscular Hemoglobin 30.4 pg (27.0-31.0); Mean Corpuscular Volume 94.4 fL (78.0-98.0); Mean Platelet Volume 7.2 fL (7.4-10.4); Platelet Count 268 thou/uL (130-400); Red Blood Cell (RBC) Count 2.89 mill/uL (4.20-5.40); White Blood Cell (WBC) Count 9.2 thou/uL (4.8-10.8)
[2018-04-22 12:27] LABS: Anion Gap 14 mmol/L (10-20); BUN (Urea Nitrogen) 6 mg/dL (9.8-20.1); Calc. Creatinine Clearance 45 mL/min (70-130); Calcium 9.1 mg/dL (7.8-10.44); Carbon Dioxide 18 mmol/L (23-31); Chloride 118 mmol/L (98-107); Estimated GFR-MDRD 59; Glucose 193 mg/dL (83-110); Sodium 147 mmol/L (136-145)
[2018-04-22 12:35] LABS: Potassium 2.9 mmol/L (3.5-5.1)
[2018-04-22] MEDS ORDERED: Potassium Chloride 20 MEQ TAB PO SCH (13:15)
[2018-04-22 21:44] LABS: Hemoglobin 8.2 g/dL (12.0-16.0); Platelet Count 247 thou/uL (130-400)
--- NOTE | 2018-04-22 23:21 | PRG ---
DATE OF SERVICE: 04/22/2018 SUBJECTIVE: The patient was seen and examined, noted with the following vital signs. OBJECTIVE: VITAL SIGNS: Afebrile, temperature 98.5; pulse 91; respiratory rate of 18; O2 saturation of 97%, blood pressure 129/60. HEENT: Unremarkable. CARDIOVASCULAR SYSTEM: First and second heart sounds were heard. RESPIRATORY SYSTEM: Clear to auscultation. DIGESTIVE SYSTEM: Revealed a benign abdomen. Positive bowel sounds. EXTREMITIES: No peripheral edema. SKIN: No new gross rash. LYMPHATICS: No peripheral lymphadenopathy. IMPRESSION: Acute on chronic kidney disease, much improved. PLAN: 1. Continue current renal supportive measures. 2. Hypokalemia. Please replete the potassium level. Job ID: [id number]
[2018-04-23] MEDS: Piperacillin/Tazobactam 3.375 GM in Sodium Chloride 0.9% 100 ML IVPB SCH ×3 (01:50→17:54)
[2018-04-23] MEDS: Acetaminophen 325 MG TAB PO PRN ×2 (04:41→20:01)
[2018-04-23] MEDS: Sodium Chloride 0.9% 1,000 ML IV SCH (09:13)
[2018-04-23] MEDS: Apixaban 2.5 MG TAB PO SCH ×2 (09:18→20:02)
[2018-04-23] MEDS: Saccharomyces boulardii 250 MG CAP PO SCH (09:18)
[2018-04-23 11:36] VITALS: BMI 21.1
[2018-04-23 12:48] LABS: Potassium 2.8 mmol/L (3.5-5.1)
--- NOTE | 2018-04-23 14:48 | PDOC.PN ---
- Subjective Encounter Start Date: 04/23/18 Encounter Start Time: 14:46 Ms. Toro was seen today in follow-up of UTI and metabolic encephalopathy. She does not have any complaints. She is much more alert. She is answering questions appropriately, Her daughter is at the bedside. - Objective Resuscitation Status - Order Detail: 04/16/18 04:19 Resuscitation Status Routine Resuscitation Status: FULL: Full Resuscitation MAR Reviewed: Yes Vital Signs & Weight: Vital Signs (12 hours) Temp Pulse Resp BP BP Pulse Ox 04/23/18 11:00 97.7 F 84 18 149/84 H 95 04/23/18 09:18 90 129/75 04/23/18 08:00 95 04/23/18 07:56 98.2 F 90 18 129/75 95 Weight Admit Weight 130 lb Weight 131 lb I&O: 04/22/18 04/23/18 04/24/18 06:59 06:59 06:59 Intake Total 2290 1050 100 Output Total 320 Balance 1970 1050 100 Result Diagrams: 04/22/18 21:20 04/23/18 11:29 Additional Labs: Accuchecks 04/23/18 04/23/18 04/22/18 11:40 05:06 20:09 POC Glucose 156 H 141 H 195 H Phys Exam - Physical Examination HEENT: PERRLA Respiratory: no wheezing, no rales, no rhonchi, clear to auscultation bilateral Cardiovascular: RRR, no significant murmur, no rub Gastrointestinal: soft, non-tender, positive bowel sounds Musculoskeletal: edema present Left upper extremity swelling Dx/Plan (1) UTI (urinary tract infection) Status: Acute Qualifiers: Urinary tract infection type: acute cystitis Hematuria presence: without hematuria Qualified Code(s): N30.00 - Acute cystitis without hematuria Comment: MDR Proteus, changed to zosyn today, need sat least 3 days Rx before discharge (2) Acute kidney injury Code(s): N17.9 - ACUTE KIDNEY FAILURE, UNSPECIFIED Status: Acute Comment: resolvign, Cr 1.58 today, [facility] (3) Chronic atrial fibrillation Code(s): I48.2 - CHRONIC ATRIAL FIBRILLATION Status: Chronic Comment: Digoxin 0.125mg daily (4) Diabetes mellitus Code(s): E11.9 - TYPE 2 DIABETES MELLITUS WITHOUT COMPLICATIONS Status: Chronic Qualifiers: Diabetes mellitus type: type 2 Diabetes mellitus terminal operator insulin use: without long-term use Diabetes mellitus complication status: without complication Qualified Code(s): E11.9 - Type 2 diabetes mellitus without complications (5) Decubitus ulcer of sacral region, stage 2 Code(s): L89.152 - PRESSURE ULCER OF SACRAL REGION, STAGE 2 Status: Chronic Comment: present on admit (6) Dysphagia Code(s): R13.10 - DYSPHAGIA, UNSPECIFIED Status: Acute (7) Hypokalemia Code(s): E87.6 - HYPOKALEMIA Status: Acute - Plan * UTI- one more day of IV antibiotics * Hypokalmeia- will replace, and check serum magnesium. * Dysphagia- continue on the modified diet * CVA- stable left sided weakness * DM- blood glucose is stable * Decubitus ulcer- continue local wound care
--- NOTE | 2018-04-23 14:54 | PDOC.EVN ---
Event Note - Event Note Event Note: Discussed with patient and daughter about her condition as well as Code status. She says that she would not want to have chest compressions, and would not want a tube down her throat, and would not want to be on a ventilator. She would like her code status to be changed to DNAR. They would NOT want HOSPICE, and would want to be treated aggressively up to the post of resuscitation. Her daughter also wants paper work to make this official across the hospital stay, and also in the [facility]- will consult palliative care. ACP 20 minutes
[2018-04-23] MEDS ORDERED: Potassium Chloride 10 MEQ in Premix Bag 1 BAG IVPB SCH (15:00)
[2018-04-23] MEDS: Magnesium Oxide 400 MG TAB PO SCH (20:02)
[2018-04-24] MEDS: Piperacillin/Tazobactam 3.375 GM in Sodium Chloride 0.9% 100 ML IVPB SCH ×2 (02:11→10:27)
[2018-04-24] MEDS: Sodium Chloride 0.9% 1,000 ML IV SCH ×2 (02:13→16:29)
[2018-04-24 07:40] LABS: Anion Gap 10 mmol/L (10-20); BUN (Urea Nitrogen) Less than 4 mg/dL (9.8-20.1); Calc. Creatinine Clearance 52 mL/min (70-130); Carbon Dioxide 20 mmol/L (23-31); Chloride 122 mmol/L (98-107); Estimated GFR-MDRD 70; Glucose 115 mg/dL (83-110); Magnesium 1.1 mg/dL (1.6-2.6); Sodium 149 mmol/L (136-145)
[2018-04-24] MEDS: Saccharomyces boulardii 250 MG CAP PO SCH (08:44)
[2018-04-24] MEDS: Magnesium Oxide 400 MG TAB PO SCH ×2 (08:44→21:14)
[2018-04-24] MEDS: Apixaban 2.5 MG TAB PO SCH ×2 (10:29→21:14)
[2018-04-24] MEDS ORDERED: Potassium Chloride 20 MEQ TAB PO SCH (12:00)
[2018-04-24] MEDS ORDERED: Magnesium 2 GM/50 ML 2 GM in Premix Bag 1 BAG IVPB SCH (12:00)
--- NOTE | 2018-04-24 14:26 | PDOC.PN ---
- Subjective Encounter Start Date: 04/24/18 Encounter Start Time: 14:25 Ms. Toro was seen today in follow-up of UTI and Metabolic encephalopathy. She appears back to her baseline. She does not ave any complaints today. - Objective Resuscitation Status - Order Detail: 04/24/18 12:41 Resuscitation Status Routine Resuscitation Status: DNAR: NO Resuscitation Discussed with: confirmed with pt and her daughter Rachel SUNSHINE Reviewed: Yes Vital Signs & Weight: Vital Signs (12 hours) Temp Pulse Resp BP BP BP Pulse Ox 04/24/18 11:00 98.5 F 81 18 131/80 96 04/24/18 08:44 81 129/60 04/24/18 08:00 96 04/24/18 07:43 98.4 F 81 18 129/60 96 04/24/18 04:59 98.0 F 78 20 152/70 H 96 Weight Admit Weight 130 lb Weight 131 lb I&O: 04/23/18 04/24/18 04/25/18 06:59 06:59 06:59 Intake Total 1050 1450 Balance 1050 1450 Result Diagrams: 04/22/18 21:20 04/24/18 06:43 Additional Labs: Accuchecks 04/24/18 04/24/18 04/23/18 11:38 04:57 19:53 POC Glucose 137 H 118 H 210 H 04/23/18 16:30 POC Glucose 179 H Phys Exam - Physical Examination HEENT: PERRLA Respiratory: no wheezing, no rales, no rhonchi + coasre breath sounds Cardiovascular: RRR, no significant murmur, no rub Gastrointestinal: soft, non-tender, no distention, positive bowel sounds Musculoskeletal: pulses present, edema present + upper extremity edema Dx/Plan (1) UTI (urinary tract infection) Status: Acute Qualifiers: Urinary tract infection type: acute cystitis Hematuria presence: without hematuria Qualified Code(s): N30.00 - Acute cystitis without hematuria Comment: MDR Proteus, changed to zosyn today, need sat least 3 days Rx before discharge (2) Acute kidney injury Code(s): N17.9 - ACUTE KIDNEY FAILURE, UNSPECIFIED Status: Acute Comment: resolvign, Cr 1.58 today, CCM (3) Chronic atrial fibrillation Code(s): I48.2 - CHRONIC ATRIAL FIBRILLATION Status: Chronic Comment: Digoxin 0.125mg daily (4) Diabetes mellitus Code(s): E11.9 - TYPE 2 DIABETES MELLITUS WITHOUT COMPLICATIONS Status: Chronic Qualifiers: Diabetes mellitus type: type 2 Diabetes mellitus filler leaf cutter long insulin use: without retirement use Diabetes mellitus complication status: without complication Qualified Code(s): E11.9 - Type 2 diabetes mellitus without complications (5) Decubitus ulcer of sacral region, stage 2 Code(s): L89.152 - PRESSURE ULCER OF SACRAL REGION, STAGE 2 Status: Chronic Comment: present on admit (6) Dysphagia Code(s): R13.10 - DYSPHAGIA, UNSPECIFIED Status: Acute (7) Hypokalemia Code(s): E87.6 - HYPOKALEMIA Status: Acute - Plan * UTI- she has completed the coarse of antibiotics * Acute Kidney injury- resolved * Hypokalemia and Hypomagnesemia- will replace * Stable for discharge to [facility].
[2018-04-24] MEDS: Acetaminophen 325 MG TAB PO PRN (21:19)
[2018-04-24 22:48] LABS: Hemoglobin 8.2 g/dL (12.0-16.0); Platelet Count 256 thou/uL (130-400)
--- NOTE | 2018-04-25 05:21 | DIS ---
DATE OF ADMISSION: 04/16/2018 DATE OF DISCHARGE: 04/24/2018 DISCHARGE DISPOSITION: Home to [facility]. The patient's primary care physician is David Young MD. DISCHARGE DIAGNOSES: 1. Urinary tract infection with sepsis. 2. Metabolic encephalopathy secondary to urinary tract infection with sepsis. 3. Acute kidney injury, resolved. 4. Diabetes mellitus type 2. 5. Hypertension. 6. Chronic obstructive pulmonary disease. 7. 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 DISCHARGE MEDICATIONS: Include diltiazem 120 mg daily, tramadol 50 mg q.6 as needed, MiraLAX 17 g daily, oxybutynin extended release 5 mg twice daily, multivitamin once a day, metformin at 1000 mg twice daily, Imodium 2 mg q.8, DuoNebs q.i.d., Lantus insulin as directed, Lasix 20 mg daily, iron sulfate 325 mg twice a day, Nexium 20 mg daily, vitamin D3 is 1000 units daily, Eliquis 2.5 mg twice a day, and Tylenol 500 mg q.6 hours as needed. PROCEDURES: Procedures done during admission, the patient had a modified barium swallow in which there showed penetration and aspiration with thin liquids and nectar liquids. The patient had a urine culture which grew Proteus, which was sensitive to Zosyn. CODE STATUS: DNR. HOSPITAL COURSE: Ms. Toro is an 83-year-old female who was sent over from [facility] after she had evidence of confusion. She was found to have urinary tract infection and acute kidney injury with a creatinine as high as 3.52. She was treated with IV fluids as well as IV antibiotics. Urine culture grew Proteus which was resistant to most oral antibiotics and sensitive to Zosyn. She was treated for seven days with IV Zosyn and her renal function improved from a creatinine of 3.52 down to 0.79. She was seen by Nephrology as well. Her mental status improved to her baseline level of functioning. However, even at her baseline, she still had poor oral intake and some risk for aspiration. This was discussed with the patient's daughter and the patient herself. They wish to continue with the modified diet with pureed food with thickened liquids and hold off on the PEG tube at this time. I did tell them that she is at high risk for readmission due to the poor oral intake in that she is likely to have recurrent acute renal failure due to dehydration as well as urinary tract infections and risk for pneumonia. They voiced understanding. They did change her code status from full code to DNR during this hospital stay and they would like to wait and just see how things go. She will be discharged back to the [facility] and the patient has a followup in [place] with regard to her recent stroke and also with her primary care physician. Job ID: [id number]
[2018-04-25 07:57] LABS: #Basophils 0.1 thou/uL (0.0-0.2); #Eosinphils 0.3 thou/uL (0.0-0.7); #Lymphocytes 1.6 thou/uL (1.20-3.40); #Monocytes 0.6 thou/uL (0.11-0.59); #Neutrophils 4.8 thou/uL (1.40-6.50); %Basophils 0.8 % (0.0-1.0); %Eosinophils 3.6 % (0.0-10.0); %Lymphocytes 22.3 % (21.0-51.0); %Monocytes 7.8 % (0.0-10.0); %Neutrophils 65.5 % (42.0-75.0); Hemoglobin 8.4 g/dL (12.0-16.0); Mean Corpuscular HGB CONC 32.1 g/dL (32.0-36.0); Mean Corpuscular Hemoglobin 30.3 pg (27.0-31.0); Mean Corpuscular Volume 94.5 fL (78.0-98.0); Mean Platelet Volume 7.1 fL (7.4-10.4); Platelet Count 269 thou/uL (130-400); RBC Distribution Width 14.3 % (11.5-14.5); Red Blood Cell (RBC) Count 2.76 mill/uL (4.20-5.40); White Blood Cell (WBC) Count 7.3 thou/uL (4.8-10.8)
[2018-04-25 08:30] LABS: Anion Gap 11 mmol/L (10-20); BUN (Urea Nitrogen) Less than 4 mg/dL (9.8-20.1); Calc. Creatinine Clearance 53 mL/min (70-130); Carbon Dioxide 20 mmol/L (23-31); Chloride 122 mmol/L (98-107); Estimated GFR-MDRD 71; Glucose 114 mg/dL (83-110); Potassium 3.4 mmol/L (3.5-5.1); Sodium 150 mmol/L (136-145)
[2018-04-25] MEDS: Apixaban 2.5 MG TAB PO SCH (09:08)
[2018-04-25] MEDS: Magnesium Oxide 400 MG TAB PO SCH ×2 (09:08→21:17)
[2018-04-25] MEDS: Saccharomyces boulardii 250 MG CAP PO SCH (09:09)
--- NOTE | 2018-04-25 09:16 | PDOC.PN ---
- Subjective Encounter Start Date: 04/25/18 Encounter Start Time: 09:13 Ms. Toro was seen today in follow-up. She does not have any complaints. - Objective Resuscitation Status - Order Detail: 04/24/18 12:41 Resuscitation Status Routine Resuscitation Status: DNAR: NO Resuscitation Discussed with: confirmed with pt and her daughter Rachel SUNSHINE Reviewed: Yes Vital Signs & Weight: Vital Signs (12 hours) Temp Pulse Resp BP Pulse Ox 04/25/18 08:00 98.2 F 80 18 146/96 H 95 04/25/18 04:00 98.1 F 89 20 148/86 H 94 L 04/25/18 00:00 98.8 F 76 20 132/64 92 L Weight Admit Weight 130 lb Weight 131 lb I&O: 04/24/18 04/25/18 04/26/18 06:59 06:59 06:59 Intake Total 1450 1240 Balance 1450 1240 Result Diagrams: 04/25/18 07:32 04/25/18 07:32 Additional Labs: Accuchecks 04/25/18 04/24/18 04/24/18 05:41 19:52 16:45 POC Glucose 114 H 165 H 146 H 04/24/18 11:38 POC Glucose 137 H Phys Exam - Physical Examination HEENT: PERRLA Respiratory: no wheezing, no rales, no rhonchi, clear to auscultation bilateral Cardiovascular: RRR, no significant murmur, no rub Gastrointestinal: soft, non-tender, positive bowel sounds Musculoskeletal: edema present + edema in the left upper extremity Dx/Plan (1) UTI (urinary tract infection) Status: Acute Qualifiers: Urinary tract infection type: acute cystitis Hematuria presence: without hematuria Qualified Code(s): N30.00 - Acute cystitis without hematuria Comment: MDR Proteus, changed to zosyn today, need sat least 3 days Rx before discharge (2) Acute kidney injury Code(s): N17.9 - ACUTE KIDNEY FAILURE, UNSPECIFIED Status: Acute Comment: resolvign, Cr 1.58 today, [facility]CM (3) Chronic atrial fibrillation Code(s): I48.2 - CHRONIC ATRIAL FIBRILLATION Status: Chronic Comment: Digoxin 0.125mg daily (4) Diabetes mellitus Code(s): E11.9 - TYPE 2 DIABETES MELLITUS WITHOUT COMPLICATIONS Status: Chronic Qualifiers: Diabetes mellitus type: type 2 Diabetes mellitus terminal system operator insulin use: without terminal system operator use Diabetes mellitus complication status: without complication Qualified Code(s): E11.9 - Type 2 diabetes mellitus without complications (5) Decubitus ulcer of sacral region, stage 2 Code(s): L89.152 - PRESSURE ULCER OF SACRAL REGION, STAGE 2 Status: Chronic Comment: present on admit (6) Dysphagia Code(s): R13.10 - DYSPHAGIA, UNSPECIFIED Status: Acute (7) Hypokalemia Code(s): E87.6 - HYPOKALEMIA Status: Acute - Plan * UTI- patient has completed a course of IV antibiotics ( Zosyn) * Hypokalemia- improved * Her serum sodium increased after discontinuing fluids overnight. I am afraid she will not be able to keep up with her fluid intake in the NH. I have discussed this again with the patient's daughter. She says she will discuss with her siblings about a PEG tube. The patient had said a few days ago that she would be agreeable to have one if necessary * DM- blood glucose is stable * HTN- blood pressure is a bit elevated- will monitor * Will hold discharge until we hear back from her daughter
[2018-04-25] MEDS ORDERED: Sodium Chloride 0.9% 1,000 ML IV SCH (09:30)
[2018-04-25] MEDS: Sodium Chloride 0.45% 1,000 ML IV SCH ×4 (10:03→22:04)
[2018-04-25] MEDS: Acetaminophen 325 MG TAB PO PRN (21:49)
[2018-04-26] MEDS: Sodium Chloride 0.45% 1,000 ML IV SCH ×2 (06:08→18:57)
[2018-04-26] MEDS: Magnesium Oxide 400 MG TAB PO SCH ×3 (07:45→19:04)
[2018-04-26] MEDS: Saccharomyces boulardii 250 MG CAP PO SCH ×2 (07:45→08:30)
--- NOTE | 2018-04-26 08:39 | PDOC.PN ---
- Subjective Encounter Start Date: 04/26/18 Encounter Start Time: 12:01 Ms. Toro was seen today in follow-up of UTI and dehydration. she is noting some hip pain, after she was turned onto her side. - Objective Resuscitation Status - Order Detail: 04/24/18 12:41 Resuscitation Status Routine Resuscitation Status: DNAR: NO Resuscitation Discussed with: confirmed with pt and her daughter Rachel SUNSHINE Reviewed: Yes Vital Signs & Weight: Vital Signs (12 hours) Temp Pulse Resp BP BP Pulse Ox 04/26/18 08:30 104 H 145/65 H 04/26/18 07:39 97.4 F L 104 H 18 145/65 H 94 L Weight Admit Weight 130 lb Weight 131 lb I&O: 04/25/18 04/26/18 04/27/18 06:59 06:59 06:59 Intake Total 1240 1300 Balance 1240 1300 Result Diagrams: 04/25/18 07:32 04/25/18 07:32 Additional Labs: Accuchecks 04/26/18 04/25/18 04/25/18 05:33 16:21 11:31 POC Glucose 119 H 138 H 158 H Phys Exam - Physical Examination HEENT: PERRLA Respiratory: no wheezing, no rales, no rhonchi, clear to auscultation bilateral Cardiovascular: RRR, no significant murmur, no rub Gastrointestinal: soft, non-tender, positive bowel sounds Musculoskeletal: edema present + swelling in the left upper and lower extremities Dx/Plan (1) UTI (urinary tract infection) Status: Acute Qualifiers: Urinary tract infection type: acute cystitis Hematuria presence: without hematuria Qualified Code(s): N30.00 - Acute cystitis without hematuria Comment: MDR Proteus, changed to zosyn today, need sat least 3 days Rx before discharge (2) Acute kidney injury Code(s): N17.9 - ACUTE KIDNEY FAILURE, UNSPECIFIED Status: Acute Comment: resolvign, Cr 1.58 today, [facility] (3) Chronic atrial fibrillation Code(s): I48.2 - CHRONIC ATRIAL FIBRILLATION Status: Chronic Comment: Digoxin 0.125mg daily (4) Diabetes mellitus Code(s): E11.9 - TYPE 2 DIABETES MELLITUS WITHOUT COMPLICATIONS Status: Chronic Qualifiers: Diabetes mellitus type: type 2 Diabetes mellitus meterman insulin use: without halfway use Diabetes mellitus complication status: without complication Qualified Code(s): E11.9 - Type 2 diabetes mellitus without complications (5) Decubitus ulcer of sacral region, stage 2 Code(s): L89.152 - PRESSURE ULCER OF SACRAL REGION, STAGE 2 Status: Chronic Comment: present on admit (6) Dysphagia Code(s): R13.10 - DYSPHAGIA, UNSPECIFIED Status: Acute (7) Hypokalemia Code(s): E87.6 - HYPOKALEMIA Status: Acute - Plan * UTI- resolved- she has completed a full course of antibiotics * Dysphagia, and poor oral intake- plan is for PEG tube, but this is being delayed until Sunday due to Eliquis * Diabetes Mellitus- blood glucose is stable * Chronic AFIB- her heart rate is stable.- Eliquis is on Hold due to PEG, and will need to be re-started after the procedure
--- NOTE | 2018-04-26 08:55 | CON ---
DATE OF CONSULTATION: 04/25/2018 REASON FOR REFERRAL: Evaluate the patient for endoscopic gastrostomy tube placement. HISTORY OF PRESENT ILLNESS: Erendira Toro is a very pleasant 83-year-old female hospitalized with altered mental status on 04/15/2018. She was found to have UTI and also been on antibiotics. The patient's oral intake is poor. On evaluation during admission, she was rehydrated. At the present time, she is awake and appears comfortable. She is a very fragile looking elderly white female. She is seen along with the patient's daughter. The patient is fully functional until 03/2018. She has easily ambulatory functional. Apparently, she fell down and broke her right arm and since that time, she also had a stroke. The patient's oral intake is very poor over the last probably almost 6 weeks or so. Before 6 weeks, she was fully functional as per the patient's daughter. The patient also has had pacemaker placement in the past. On admission, she was found to be with dehydration with a BUN of 122, creatinine of 4.9%, potassium 7.1. nephrology service symptomatically. With IV hydration, her mental status markedly improved. The most recent lab data shows the BUN down at less than 4, creatinine 0.78. Glucose 114. The patient's oral intake fairly good in the hospital. However, if she goes back to the half-way, it is possible she might probably have come back with dehydration. Apparently, Dr. Noel discussed with the family member of the patient. Initially, they were not very sure why the PEG tube was placed. However today, the patient is agreeable to the PEG tube placement. The patient had abdominal pain. No nausea or vomiting. No dysphagia, odynophagia. She has no relevant history. MEDICAL ILLNESSES: 1. Hypertension. 2. Diabetes mellitus. 3. COPD. 4. Congestive heart failure. 5. Status post pacemaker implant. 6. Chronic atrial fibrillation. 7. 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 PAST SURGICAL HISTORY: 1. 40 years ago. 2. Pacemaker implant. SOCIAL HISTORY: The patient is a chronic smoker, a pack of cigarettes per day. No history of alcohol intake. She lives in a nursing facility. ALLERGIES: NONE. FAMILY HISTORY: No family history of cancer or coronary artery disease. MEDICATIONS: List reviewed. REVIEW OF SYSTEMS: Decreased oral intake, generalized weakness, and fatigue. PHYSICAL EXAMINATION: GENERAL: Reveals a very pleasant, elderly female. She is very comfortable. She is weak, but in no distress. VITAL SIGNS: Her vital signs are essentially stable. Afebrile. Her pulse is 85, blood pressure 91/56. HEENT: Conjunctivae clear. NECK: Supple. No adenitis or thyromegaly noted. CARDIOVASCULAR SYSTEM: First and second heart sounds are heard. LUNGS: Clear to auscultation. ABDOMEN: Soft. Abdomen is nondistended. Abdomen is nontender. No organomegaly or masses. Bowel sounds normal. EXTREMITIES: Reveal no edema. LABORATORY DATA: The most recent one; sodium is 150, potassium 3.4, chloride 122, bicarb is 20, BUN is less than 4, creatinine 0.78, glucose 114, and calcium 9. CBC; WBC 7300, hemoglobin 8.4, hematocrit 26.1, platelet count is 269,000, polymorphs 65, lymphocytes 22, and monocytes 7. CLINICAL IMPRESSION: An 83-year-old female with recent cerebrovascular accident, dysphagia, severe dehydration. Rehydration, she would be back to normal. Her oral intake is reasonably good. However, the long-term outlook is poor and that is reason for the patient to have a PEG tube placed. I discussed with Rachel, who is her daughter in the room and the patient explained about the procedure, benefits, and risks. The patient is going to have a PEG tube placement sometime tomorrow. Job ID: [id number]
[2018-04-26] MEDS: Acetaminophen 325 MG TAB PO PRN (09:31)
[2018-04-26] MEDS: traMADol HCl 50 MG TAB PO PRN (13:36)
--- NOTE | 2018-04-26 18:13 | PRG ---
DATE OF SERVICE: SUBJECTIVE: The patient noted with the following vital signs. OBJECTIVE: VITAL SIGNS: Afebrile, temperature 97.2, pulse 75, respiratory rate of 16, O2 saturation of 97%, blood pressure 141/73. HEENT: Unremarkable. CARDIOVASCULAR SYSTEM: First and second sounds were heard. RESPIRATORY SYSTEM: Clear to auscultation. DIGESTIVE SYSTEM: Revealed a benign abdomen. EXTREMITIES: No peripheral edema. SKIN EXAMINATION: No new gross rash. LYMPHATICS: No peripheral lymphadenopathy. IMPRESSION: 1. Acute kidney injury, which is much improved. 2. Hypernatremia in the context of free water deficit. 3. Hypokalemia. 4. Mild metabolic acidosis. PLAN: 1. Replete potassium. 2. Free water repletion. We will discontinue current saline and start this patient on D5W with 20 mEq of potassium. 3. Further management will be dependent on the clinical course. Job ID: [id number]
[2018-04-26] MEDS: Dextrose 5% w/ 20 mEq KCl 1,000 ML IV SCH (19:04)
[2018-04-27] MEDS: Dextrose 5% w/ 20 mEq KCl 1,000 ML IV SCH (04:46)
[2018-04-27 06:06] LABS: #Eosinphils 0.2 thou/uL (0.0-0.7); #Lymphocytes 1.5 thou/uL (1.20-3.40); #Monocytes 0.5 thou/uL (0.11-0.59); #Neutrophils 5.1 thou/uL (1.40-6.50); %Basophils 0.3 % (0.0-1.0); %Eosinophils 2.6 % (0.0-10.0); %Lymphocytes 20.3 % (21.0-51.0); %Monocytes 6.8 % (0.0-10.0); %Neutrophils 69.9 % (42.0-75.0); Hemoglobin 8.1 g/dL (12.0-16.0); Mean Corpuscular HGB CONC 32.4 g/dL (32.0-36.0); Mean Corpuscular Hemoglobin 31.5 pg (27.0-31.0); Mean Corpuscular Volume 97.2 fL (78.0-98.0); Mean Platelet Volume 6.8 fL (7.4-10.4); Platelet Count 249 thou/uL (130-400); RBC Distribution Width 14.6 % (11.5-14.5); Red Blood Cell (RBC) Count 2.56 mill/uL (4.20-5.40); White Blood Cell (WBC) Count 7.3 thou/uL (4.8-10.8)
[2018-04-27 06:32] LABS: Anion Gap 10 mmol/L (10-20); BUN (Urea Nitrogen) Less than 4 mg/dL (9.8-20.1); Calc. Creatinine Clearance 58 mL/min (70-130); Calcium 8.8 mg/dL (7.8-10.44); Carbon Dioxide 17 mmol/L (23-31); Chloride 114 mmol/L (98-107); Estimated GFR-MDRD 79; Glucose 177 mg/dL (83-110); Potassium 4.2 mmol/L (3.5-5.1); Sodium 137 mmol/L (136-145)
--- NOTE | 2018-04-27 08:45 | PRG ---
DATE OF SERVICE: SUBJECTIVE: The patient is seen and examined at the bedside. She tries to answer my simple questions, but definitely she has some memory issues and not able to answer deeper questions properly. She knows that she is in the hospital at [place], but she does not know the place or time. OBJECTIVE: VITAL SIGNS: Blood pressure is 163/80, pulse is 79, respiratory rate is 20, temperature is 97.5, O2 saturation is 97% on room air. HEENT: Head is atraumatic and normocephalic. Her eyes looking to the right. She is not able to look to the left, most likely secondary to the previous stroke. She follows my commands. Her oral mucosa is relatively moist. NECK: Supple. LUNGS: Clear. HEART: S1 and S2 normal. No S3. No S4. ABDOMEN: Soft and nontender. Bowel sounds are present. No organomegaly. EXTREMITIES: No clubbing, cyanosis, or edema. NEUROLOGICAL: She has left-sided hemipareses. There is significant 2+ swelling of the left upper extremity. The wrist is tender to touch, but there is no erythema in this area. LABORATORY DATA: Labs showed a white count of 7.3, hemoglobin 8.1, hematocrit 24.9, and platelet count is 249. Sodium of 137, potassium 4.2, chloride 114, CO2 of 17, BUN less than 4, creatinine 0.71, glycemia is ranging from 119 to 184, calcium 8.8. IMPRESSION: 1. Urinary tract infection, resolved. 2. Acute kidney injury. 3. Chronic atrial fibrillation. 4. Diabetes mellitus, chronic. 5. Left upper extremity swelling, acute. We will obtain Doppler to rule out deep vein thrombosis. 6. Decubitus ulcer of sacrum region, stage II. 7. Dysphagia. 8. Hypokalemia, resolved. PLAN: Plan is to continue her current regimen with D5 water 100 mL managed per Nephrology for her hypernatremia, hyperchloremia, which is resolving. Juan is on hold since she is going to have the PEG tube placed on Sunday. Her diabetes is relatively well controlled and will continue her current regimen. Job ID: [id number]
[2018-04-27] MEDS: Saccharomyces boulardii 250 MG CAP PO SCH (09:01)
[2018-04-27] MEDS: Magnesium Oxide 400 MG TAB PO SCH ×2 (09:01→19:37)
--- NOTE | 2018-04-27 09:17 | ULT ---
LEFT UPPER EXTREMITY VENOUS DOPPLER: Date: 04/27/18 PROVIDED CLINICAL HISTORY: Left upper extremity swelling. FINDINGS: Galvin scale and color Doppler sonography with spectral analysis was performed of the left internal jug ular, subclavian, axillary, cephalic, basilic, brachial, radial, and ulnar veins, demonstrating cammie l sonographic appearance to each. IMPRESSION: No sonographic evidence for left upper extremity venous thrombosis. POS: ABDOULAYE
[2018-04-27] MEDS: Acetaminophen 325 MG TAB PO PRN (12:40)
--- NOTE | 2018-04-28 02:10 | PRG ---
DATE OF SERVICE: 04/27/2018 REASON FOR CONSULTATION: Dysphagia, malnutrition. SUBJECTIVE: The patient states that she was doing well today but was unable to tolerate much of a semi-solid diet despite attempts to eat. She is hopeful that the placement of the PEG tube will help with her nutritional status and is in anticipation for the PEG tube placement tomorrow. Currently, denies any nausea, vomiting, fevers, chills, abdominal pain, or GI bleeding. OBJECTIVE: VITAL SIGNS: Temperature 97.7, pulse 81, blood pressure 113/69, respiratory rate 18, saturating 97% on room air. GENERAL: The patient was lying in bed, in no acute distress. Alert and oriented x1. CARDIOVASCULAR: Regular rate and rhythm. RESPIRATORY: Clear to auscultation bilaterally. ABDOMEN: Normoactive bowel sounds. Soft, nontender, nondistended. EXTREMITIES: No cyanosis, clubbing, or edema. LABORATORY DATA: CBC with a white blood cell count of 7.3, hemoglobin 8.1, hematocrit 24.9, platelets 249. Chemistry with a sodium of 137, potassium 4.2, chloride 114, CO2 17, BUN less than 4, creatinine 0.71, glucose 177. IMAGING DATA: No current GI imaging is available for review. ASSESSMENT AND PLAN: The patient is an 83-year-old female with past medical history of recent cerebrovascular accident with resultant dysphagia and now severe dehydration and moderate protein calorie malnutrition. Dysphagia: The patient is presenting with a recent history of cerebrovascular accident with resultant oropharyngeal dysphagia, but without any evidence of overt aspiration. However, when she was discharged to assisted, she was not able to tolerate a significant amount of oral intake and then as such has experienced moderate protein calorie malnutrition. At this time, the patient and family are in agreement for placement of a PEG tube for nutritional supplementation, which is planned for tomorrow morning. RECOMMENDATIONS: 1. We would have the patient n.p.o. at midnight in anticipation for EGD with PEG tube placement tomorrow on April 28, 2018. 2. Continue to hold any anticoagulation in preparation for this procedure. We will continue to follow. Please call with any questions. Job ID: [id number]
[2018-04-28 06:54] LABS: Anion Gap 12 mmol/L (10-20); BUN (Urea Nitrogen) Less than 4 mg/dL (9.8-20.1); Calc. Creatinine Clearance 57 mL/min (70-130); Calcium 9.5 mg/dL (7.8-10.44); Carbon Dioxide 19 mmol/L (23-31); Chloride 114 mmol/L (98-107); Estimated GFR-MDRD 78; Glucose 116 mg/dL (83-110); Potassium 4.7 mmol/L (3.5-5.1); Sodium 140 mmol/L (136-145)
[2018-04-28] MEDS ORDERED: CEFAZOLIN 2 GM/50 ML BAG ONE (07:47)
[2018-04-28] MEDS ORDERED: KETAMINE 100 MG/ML (5ML VIAL) ONE (07:59)
[2018-04-28] MEDS ORDERED: Ondansetron HCl/PF 4 MG/2 ML Vial IVP PRN (08:38)
[2018-04-28] MEDS ORDERED: Promethazine HCl 25 MG/ML VIAL SLOW IVP PRN (08:38)
[2018-04-28] MEDS ORDERED: Promethazine HCl 25 MG/ML VIAL IM PRN (08:38)
--- NOTE | 2018-04-28 10:03 | OP ---
DATE OF PROCEDURE: 04/28/2018 PROCEDURE: Esophagogastroduodenoscopy with percutaneous gastrostomy tube placement. INDICATION FOR PROCEDURE: Dysphagia, moderate protein-calorie malnutrition. DESCRIPTION OF PROCEDURE: After the risks and benefits of the procedure were explained to the patient including risks of bleeding, infection, perforation, reactions to anesthesia, aspiration and/or pain, informed consent was obtained. The patient was then taken to the endoscopy suite, where deep sedation was administered via ketamine and anesthesia support. Once adequate sedation was achieved, the standard gastroscope was introduced into the mouth with intubation of the esophagus, stomach, and the proximal small intestine with the findings listed below. Upon completion of the intraluminal evaluation, confirmation of the PEG tube site was confirmed via one-to-one compression and transillumination, both of which were positive. After confirmation was obtained, the patient was prepped and draped in sterile fashion with installation of approximately 5 mL of 1% Xylocaine into the skin in a wheel-type fashion, but then the needle was oriented perpendicular to the stent and advanced into the stomach with back pressure the entire time. Upon withdrawal of the needle, the remainder of the local anesthetic was injected into the region. Then using a scalpel, a 1 cm vertical incision was made at the site of local anesthesia. A minimal bleeding was noted at this particular point in time that was controlled with pressure with 4x4 for approximately 10 seconds. Then using the aspiration needle, it was advanced into the stomach overlying guidewire. Once adequately placed in the stomach, a guidewire was then advanced through the catheter after removal of the needle. The guidewire was then captured via snare through the scope and brought back through the mouth with retraction of the scope. The gastrostomy tube was then affixed to the guidewire and using a push technique, it was advanced through the mouth into the stomach and through the anterior abdominal wall. The PEG tube was then cut to length with the external bumper and catheter affixed to the gastrostomy tube. The patient tolerated the procedure well with no immediate perioperative complications. At the completion of the procedure, all equipment was removed from the patient, and the patient was transferred to PACU in satisfactory condition. FINDINGS: Esophagus: Normal-appearing mucosa was seen in the proximal, mid, and distal esophagus. Both the diaphragmatic pinch and GE junction were well seen at approximately 44 cm past the incisors. There was no evidence of erosions, ulcerations, mass, lesions, or active/recent bleeding. Stomach: Normal-appearing mucosa was seen in the gastric cardia, fundus, body, greater curvature, antrum, and incisura. There was no evidence of erosions, ulcerations, mass, lesions, or active/recent bleeding. Upon confirmation of the PEG tube site as explained above, a 20-Icelandic [employer] PEG tube was placed through the anterior abdominal wall successfully without complication. Duodenum: Normal-appearing mucosa was seen in both the duodenal bulb and second portion of the duodenum. There was no evidence of erosions, ulcerations, mass, lesions, or active/recent bleeding. IMPRESSION: 1. Normal upper endoscopy. 2. Successful placement of a [employer] 20-Icelandic percutaneous gastrostomy tube. RECOMMENDATIONS: 1. We would hold on any tube feeds for the next 6 hours for signs of postprocedure complication. If no evidence of complications at that time, would start tube feeds through the PEG tube per dietary protocol. 2. Review tube feeds according to dietary consultation and per tube feed protocol for this patient. 3. We would adhere to PEG tube care precautions (for example, the rotation of the tube approximately 720 degrees daily, can wash the wound with running soap and water over the wound, but would refrain from bathing or swimming for the next 6 weeks. Please refrain from placing any dressings or objects between the external bumper and the skin, and maintain a 1 cm distance between the skin and the external bumper at all times). 4. We will continue to follow. Please call with any questions. Job ID: [id number]
[2018-04-28] MEDS: Magnesium Oxide 400 MG TAB PO SCH ×2 (11:10→21:44)
[2018-04-28] MEDS: Acetaminophen 325 MG TAB PO PRN (11:10)
[2018-04-28] MEDS: Saccharomyces boulardii 250 MG CAP PO SCH (11:10)
--- NOTE | 2018-04-28 13:39 | PRG ---
DATE OF SERVICE: 04/27/2018 SUBJECTIVE: The patient was seen and examined, noted with the following vital signs. OBJECTIVE: VITAL SIGNS: Afebrile, temperature 97.7, pulse 81, respiratory rate , O2 saturation 97%, and blood pressure . HEENT: Unremarkable. Moist oral mucosa. NECK: Supple. No conjunctival injection or icterus. CARDIOVASCULAR: First and second heart sounds are heard. RESPIRATORY: Clear to auscultation. DIGESTIVE: Benign abdomen. EXTREMITIES: Showed left upper extremity swelling. IMPRESSION: 1. Hyponatremia . PLAN: 1. Discontinue free water repletion. 2. Further management will be dependent on the clinical course. Job ID: [id number]
--- NOTE | 2018-04-28 13:50 | PRG ---
DATE OF SERVICE: 04/28/2018 SUBJECTIVE: The patient is seen and examined at the bedside. She just came back from the procedure. She does have a PEG tube placed. She says that she feels like hell. There are three family members in the room present during my visit. OBJECTIVE: VITAL SIGNS: Blood pressure is 179/74, pulse is 91, temperature is 98.4, respiratory rate is 18, and O2 saturation 95% on room air. GENERAL: She looks somewhat sick and ill. HEENT: Her conjunctivae are palish. Oral mucosa is dry. NECK: Thyroid is not palpable. LUNGS: Clear. HEART: S1, S2, somewhat irregular. No S3. No S4. ABDOMEN: Soft. Tender to palpation, especially in the area, where the PEG tube is placed. Bowel sounds are sluggish. EXTREMITIES: No clubbing, cyanosis, or edema, except for the left upper extremity, which is 2 to 3+ swollen. NEUROLOGIC: She follows my commands. She answers my questions. She moves her all four extremities. LABORATORY DATA: Showed glycemia ranging from 111 to 203. Sodium of 140, potassium 4.6, chloride 114, CO2 of 19, BUN less than 4, creatinine 0.72, calcium 9.5. IMPRESSION: 1. Urinary tract infection, resolved. 2. Acute kidney injury, improved. 3. Chronic atrial fibrillation, rate controlled. 4. Diabetes mellitus, chronic, relatively well controlled. 5. Left upper extremity swelling, acute with negative Doppler for deep venous thromboses. We will try to elevate that limb to improve the drainage. 6. Decubitus ulcer of sacrum region, stage II and both heels, stage I. 7. Dysphagia. 8. Hypokalemia, resolved. PLAN: Plan is to start her feeding in the next 6 hours as recommended per GI. We will start at 30 mL/h, then go up to 40, and we are going to keep holding Eliquis until tomorrow and we will cut back on her potassium to 20 mEq since her level is currently well. Job ID: [id number]
--- NOTE | 2018-04-28 21:04 | PRG ---
DATE OF SERVICE: 04/28/2018 SUBJECTIVE: The patient noted with the following vital signs. OBJECTIVE: VITAL SIGNS: Afebrile, temperature 98; pulse 84; respiratory rate of 18; O2 saturation of 94%; blood pressure 141/65. HEENT EXAMINATION: Unremarkable. CARDIOVASCULAR SYSTEM: First and second heart sounds were heard. RESPIRATORY SYSTEM: Clear to auscultation. DIGESTIVE SYSTEM: Revealed a benign abdomen. EXTREMITIES: No peripheral edema. SKIN EXAMINATION: No new gross rash. LYMPHATICS: No peripheral lymphadenopathy. LABORATORY INVESTIGATION: Showed sodium of 140. IMPRESSION: Hypernatremia which seems to have resolved status post free water repletion. PLAN: Continue current renal supportive measures. Further management to be dependent on the clinical course. Job ID: [id number]
[2018-04-29] MEDS: HumaLOG 300 UNITS/3 ML VIAL SC PRN ×2 (06:20→17:59)
[2018-04-29 07:19] LABS: Anion Gap 12 mmol/L (10-20); BUN (Urea Nitrogen) 5 mg/dL (9.8-20.1); Calc. Creatinine Clearance 73 mL/min (70-130); Carbon Dioxide 21 mmol/L (23-31); Chloride 111 mmol/L (98-107); Estimated GFR-MDRD Greater than 90; Glucose 196 mg/dL (83-110); Potassium 4.1 mmol/L (3.5-5.1); Sodium 140 mmol/L (136-145)
[2018-04-29] MEDS: Magnesium Oxide 400 MG TAB PO SCH ×2 (08:17→20:14)
[2018-04-29] MEDS: Saccharomyces boulardii 250 MG CAP PO SCH (08:17)
[2018-04-29] MEDS: traMADol HCl 50 MG TAB PO PRN ×3 (08:18→17:58)
--- NOTE | 2018-04-29 11:57 | PRG ---
DATE OF SERVICE: 04/29/2018 SUBJECTIVE: The patient is seen and examined at bedside. She complains about the abdominal pain where the PEG tube was placed. We noticed that she started having some low-grade fever after the procedure. OBJECTIVE: VITAL SIGNS: Blood pressure is 153/71, pulse is 76, temperature is 99.8, and pulse oximetry is 97% on room air. HEENT: Her pupils are responding to light properly. Sclerae are nonicteric. Oral mucosa is somewhat dry. NECK: Supple. LUNGS: Clear. HEART: S1 and S2 somewhat irregular. No S3 and no S4. ABDOMEN: Tender to palpation in the area where the PEG tube is. Bowel sounds are sluggish. No organomegaly. EXTREMITIES: No clubbing, cyanosis, or edema except for the left upper extremity swelling, which is improved with positioning independent way. NEUROLOGIC: She follows my commands. She is able to answer my questions. There is no any focal deficits. LABORATORY DATA: Labs showed sodium of 140, potassium 4.1, chloride 111, CO2 of 21, BUN 5, creatinine 0.57, glycemia is ranging from 88 to 207, and calcium 9.0. X-ray was taken of this morning since she had this low-grade fever and it showed a left pleural effusion and questionable infiltrate in the left lower lobe. IMPRESSION: 1. Urinary tract infection, resolved. 2. Acute kidney injury, improved. 3. Chronic atrial fibrillation, rate controlled. 4. Diabetes mellitus, chronic, relatively well controlled. 5. Left upper extremity swelling, acute with negative Doppler for deep venous thrombosis, improved with dependent position to help the lymph drainage. 6. Fever post percutaneous endoscopic gastrostomy tube placement. We will check her urine with Gram stain, urinalysis, and culture. 7. Dysphagia, status post percutaneous endoscopic gastrostomy tube placement. 8. Hypokalemia, resolved. PLAN: As I mentioned, to get UA, Gram stain, and culture. She was started on tube feeding at 40 mL/hr. She tolerates it well. Her Eliquis needs to be restarted, but because of the amount of pain she complains about in her abdomen, I will wait until she is cleared by front elevator operator. Then, she needs to be on Eliquis after that. If she has some infectious etiology changes on her urine, we will put her on antibiotic. Job ID: [id number]
[2018-04-29 12:47] LABS: Bilirubin Negative (Negative); Blood, Urine Negative (Negative); Clarity CLEAR (Clear); Glucose, Urine (Dipstick) Negative (Negative); Leukocyte Negative (Negative); Nitrite Negative (Negative); Protein, Urine (Dipstick) Negative (Neg-Trace); Specific Gravity, Urine 1.009 (1.002-1.036); Urobilinogen 0.2 mg/dL (0.2-1.0)
[2018-04-29 12:50] LABS: Bacteria/HPF None Seen HPF (None Seen); Hyaline Casts/LPF 0-3 HYALINE CAST LPF (0-3 Hyaline); Pathc Cast-AUWi Flag 0.58 (0-2.49); RBC/HPF None Seen HPF (0-3); Squamous Epithelial 0-3 HPF (0-3); WBC/HPF None Seen HPF (0-3)
--- NOTE | 2018-04-29 13:37 | RAD ---
CHEST 1 VIEW: HISTORY: Fever. COMPARISON: Chest radiograph 04/15/2018. FINDINGS: Interval size increase of a moderate to large layering effusion. New moderate right pleural effusion . Dual-lead pacer is similar. No pneumothorax. IMPRESSION: 1. Interval size increase of large left and moderate right-sided pleural effusions with cardiomegaly suggesting decompensated congestive heart failure. 2. Some periosteal new bone formation along the right humeral head/neck fracture. POS: C
[2018-04-29] MEDS: Acetaminophen 325 MG TAB PO PRN (20:14)
--- NOTE | 2018-04-29 21:42 | PRG ---
DATE OF SERVICE: 04/29/2018 SUBJECTIVE: The patient noted with the following vital signs. OBJECTIVE: VITAL SIGNS: Afebrile. Blood pressure 153/71, pulse of 76, respiratory rate of 18, O2 saturations 97%. HEENT: Unremarkable. CARDIOVASCULAR SYSTEM: First and second heart sounds were heard. RESPIRATORY SYSTEM: Clear to auscultation. DIGESTIVE SYSTEM: Revealed a benign abdomen. Positive bowel sounds. EXTREMITIES: No peripheral edema. SKIN: No new gross rash. LYMPHATICS: No peripheral lymphadenopathy. IMPRESSION: 1. Acute kidney injury, much improved. 2. Hyponatremia, resolved, status post free water repletion. PLAN: 1. Continue current renal supportive measures. 2. Pay attention to the sodium and replete free water accordingly. Job ID: [id number]
--- NOTE | 2018-04-29 23:31 | PRG ---
DATE OF SERVICE: 04/29/2018 REASON FOR CONSULTATION: Dysphagia, malnutrition. SUBJECTIVE: The patient underwent EGD with percutaneous gastrostomy tube placement yesterday on 04/28/2018, with no immediate or postprocedural complications. Today, she states that she has an increased amount of pain surrounding the percutaneous gastrostomy site that is moderately controlled with current pain medication management. Otherwise, she states she is doing okay without complaints of nausea, vomiting, fevers, chills, or GI bleeding. OBJECTIVE: VITAL SIGNS: Temperature 97.7, pulse 83, blood pressure 117/68, respiratory rate 16, saturating 95% on room air. GENERAL: The patient is lying in bed, in no acute distress. Alert and oriented x1. CARDIOVASCULAR: Regular rate and rhythm. RESPIRATORY: Clear to auscultation bilaterally. ABDOMEN: Normoactive bowel sounds. Soft, nondistended. Increased tenderness to palpation around the PEG tube site, but no evidence of purulence or increased erythema in the surrounding skin. There is also no drainage or bleeding from the PEG tube site as well. EXTREMITIES: No cyanosis, clubbing, or edema. LABORATORY DATA: No CBC was available for review; however, the chemistry showed a sodium of 140, potassium 4.1, chloride 111, CO2 of 21, BUN 5, creatinine 0.57, glucose 196. IMAGING DATA: The patient underwent upper endoscopy on 04/28/2018, with percutaneous gastrostomy tube placement with the EGD portion of the exam showing normal mucosa within the esophagus, stomach, and proximal small intestine. ASSESSMENT AND PLAN: The patient is an 83-year-old female with past medical history of recent cerebrovascular accident with resultant dysphagia and now severe dehydration and moderate protein calorie malnutrition. Dysphagia/malnutrition. The patient is presenting with a recent history of cerebrovascular accident and resultant oropharyngeal dysphagia; however, per speech pathology examination, she is still able to tolerate a semisolid/chopped diet, but has been unable to consume enough food in order to maintain adequate nutritional status. With this dysphagia and inability to tolerate much oral intake, a PEG tube was placed on 04/28/2018, with no periprocedural complications. She was subsequently started on tube feeds per protocol and has been able to tolerate this just fine. RECOMMENDATIONS: 1. Would continue to advance the patient's rate of tube feed supplementation per dietary consult protocol. 2. Would continue to hold any anticoagulation until at least another 24 hours given the possibility of increased GI bleeding since the gastrostomy tube placement. 3. Would follow standard PEG tube care. We will sign off at this time. Please have the patient follow up in the GI Clinic with Dr. Keller within 2 to 3 weeks of discharge. Job ID: [id number]
[2018-04-30] MEDS: HumaLOG 300 UNITS/3 ML VIAL SC PRN ×2 (05:28→12:29)
[2018-04-30] MEDS: Acetaminophen 325 MG TAB PO PRN ×2 (05:36→13:20)
[2018-04-30 07:47] VITALS: BP 157/66; TEMP 97.9
[2018-04-30] MEDS: Saccharomyces boulardii 250 MG CAP PO SCH (08:45)
[2018-04-30] MEDS: Magnesium Oxide 400 MG TAB PO SCH (08:46)
[2018-04-30] MEDS ORDERED: Furosemide 40 MG/4 ML VIAL SLOW IVP SCH (10:00)
[2018-04-30] MEDS: traMADol HCl 50 MG TAB PO PRN (10:23)
--- NOTE | 2018-04-30 11:07 | PQF ---
DATE: 04-30-18 ATTN: DR. BERTHA ALLEN Please exercise your independent, professional judgment in responding to the clarification form. Clinical indicators are provided on the bottom of this form for your review Please check appropriate box(s) to clarify if the following diagnosis has been ruled in or ruled out: SEPSIS [ ] Ruled in diagnosis [ ] Continue to treat [ ] Resolved - POA: YES NO_ ____ UNABLE TO DETERMINE [ x] Ruled out diagnosis [ ] Other diagnosis [ ] Unable to determine For continuity of documentation, please document condition throughout progress notes and discharge summary. Thank You. CLINICAL INDICATORS - SIGNS / SYMPTOMS / LABS ER DX: ACUTE RENAL FAILURE, HYPERKALEMIA, LACTIC ACIDOSIS, UTI DISCHARGE SUMMARY DR. PIÑA ON 04-24-18: DISCHARGE DIAGNOSIS: 1. UTI WITH SEPSIS 2. METABOLIC ENCEPHALOPATHY 2/2 TO UTI WITH SEPSIS LACTIC ACIDOSIS: 04-15-18: 2.4 04-16-18: 2.4 TEMP: ER: 99.4 PULSE: ER: 102, 99 BP: ER: 95/48 RISK FACTORS: DISCHARGE SUMMARY DR. PIÑA ON 04-24-18: DISCHARGE DIAGNOSIS: 1. UTI WITH SEPSIS 2. METABOLIC ENCEPHALOPATHY 2/2 TO UTI WITH SEPSIS D/C SUMMARY DR. PIÑA 04-24-18: CAME IN WITH CONFUSION, FOUND WITH UTI AND NURA, URINE GREW PROTEUS H&P: HX FROM NH, DM 2, HTN, CHF, COPD, DEHYDRATED, DECUB ULCER STAGE 2 SACRAL TREATMENTS: ER: IVF D/C SUMMARY 04-24-18 DR. PIÑA: 7 DAYS WITH IV ZOSYN (This form is maintained as a part of the permanent medical record) 2014 [employer] All Rights Reserved FAUSTO [email or web address] Office: [phone] [facility]
--- NOTE | 2018-04-30 21:18 | DIS ---
DATE OF ADMISSION: 04/15/2018 DATE OF DISCHARGE: 04/30/2018 PRIMARY CARE PROVIDER: David Young MD DISCHARGE DIAGNOSES: 1. Urinary tract infection. 2. Acute metabolic encephalopathy. 3. Acute kidney injury. 4. Hypernatremia. 5. Oropharyngeal dysphagia. CONDITION OF PATIENT ON THE DAY OF DISCHARGE: Stable. I assessed Ms. Toro on the day of discharge. She denies any chest pain or shortness of breath. Vital signs are stable. S1 and S2 are heard, regular. Lungs are clear to auscultation bilaterally. DISCHARGE MEDICATIONS: 1. Tylenol Extra Strength 500-1000 mg every 6 hours as needed. 2. Apixaban 2.5 mg 2 times a day. 3. Vitamin D3 1000 units daily. 4. Esomeprazole 20 mg daily. 5. Ferrous sulfate 325 mg 2 times a day. 6. Furosemide 20 mg daily. 7. Guaifenesin p.r.n. 8. Humalog by sliding scale. 9. Lantus insulin 2 units daily. 10. DuoNeb 3 mL four times a day. 11. Imodium p.r.n. 12. Metformin 1000 mg 2 times a day. 13. Multivitamins 1 tablet daily. 14. Oxybutynin 5 mg two times a day. 15. Cardizem CD 120 mg daily. 16. Tramadol 50 mg every 6 hours as needed. CONSULTATIONS DURING THIS HOSPITALIZATION: 1. Gastroenterology, Dr. Keller. 2. Nephrology, Dr. Avila. HOSPITAL COURSE: Please note the discharge summary was previously dictated by Dr. Noel on April 24, 2018. Please refer to the discharge summary for details of this hospitalization. The patient was not discharged that day and Gastroenterology Service was consulted because of poor oral intake. The patient had PEG tube placed on April 28, 2018. PEG tube feeds were initiated. [facility] On April 29, she had sodium 140, potassium 4.1, blood urea nitrogen 5, creatinine 0.57. On April 27, she had white count of 7300, hemoglobin 8.1, and platelet count 249,000. Many thanks for allowing me to participate in your patient's care. Please feel free to contact me with any questions or concerns. DISCHARGE DESTINATION: [facility], from where patient was admitted to the hospital. Total amount of time spent coordinating this discharge: 25 minutes. Job ID: [id number]
== END 2018-04-30 15:07 | DRG 682 ==
LOC: ERS 18:58 → ERHOLD 21:55 → 2NO 04-16 16:58 → T4-A 04-22 16:30
PROVIDERS: ADMIT Internal Medicine; ATTEND Internal Medicine
PROC: 0DH63UZ Insertion of Feeding Device into Stomach, Percutaneous Approach (ICD-10-PCS; principal; 2018-04-28)
DX: N17.9 Acute kidney failure, unspecified (principal); G93.41 Metabolic encephalopathy; I69.354 Hemiplegia and hemiparesis following cerebral infarction affecting left non-dominant side; E87.2 Acidosis; N30.00 Acute cystitis without hematuria; E87.1 Hypo-osmolality and hyponatremia; E44.0 Moderate protein-calorie malnutrition; I13.0 Hypertensive heart and chronic kidney disease with heart failure and stage 1 through stage 4 chronic kidney disease, or unspecified chronic kidney disease; I69.391 Dysphagia following cerebral infarction; R13.12 Dysphagia, oropharyngeal phase; I69.322 Dysarthria following cerebral infarction; L89.152 Pressure ulcer of sacral region, stage 2; I48.2 Chronic atrial fibrillation; B96.4 Proteus (mirabilis) (morganii) as the cause of diseases classified elsewhere; Z16.24 Resistance to multiple antibiotics; E11.22 Type 2 diabetes mellitus with diabetic chronic kidney disease; N18.9 Chronic kidney disease, unspecified; I50.9 Heart failure, unspecified; E87.6 Hypokalemia; E86.0 Dehydration; E87.5 Hyperkalemia; Z66 Do not resuscitate; Z95.0 Presence of cardiac pacemaker; Z68.21 Body mass index [BMI] 21.0-21.9, adult; J44.9 Chronic obstructive pulmonary disease, unspecified; R22.32 Localized swelling, mass and lump, left upper limb; L89.621 Pressure ulcer of left heel, stage 1; L89.611 Pressure ulcer of right heel, stage 1; Z87.891 Personal history of nicotine dependence; Z79.01 Long term (current) use of anticoagulants; Z79.84 Long term (current) use of oral hypoglycemic drugs
CPT/HCPCS: 36415; 36416; 71045; 74230; 80048; 81001; 82565; 83605; 83735; 84132; 85014; 85018; 85025; 85049; 87040; 87077; 87086; 87186; 87205; 87324; 87449; 96361; 96365; 96366; 96375; J0696; J1940; J2405; J2543; J3480; J7050; J7070